=== PATIENT | male | born 1945 | race Caucasian/White ===

== ENCOUNTER 2016-04-27 18:19 | Emergency (ER) | payer MEDICARE, OTHER ==
[2016-04-27 17:14] LABS: Blood Urea Nitrogen 16 mg/dL (9-20); Non-African American GFR(MDRD) >60 (>60 ml/min/1.73 sqM)
--- NOTE | 2016-04-27 18:09 | CT ---
EXAMINATION TYPE: CT brain wo/w con DATE OF EXAM: 04/27/2016 5:58 PM COMPARISON: NONE HISTORY: PT states of mental changes and aphasia. CT DLP: 1974.6 mGycm Automated exposure control for dose reduction was used. CONTRAST: CT scan of the head is performed without and with IV Contrast, patient injected with 100 mL of Omnipa que 300. FINDINGS: There is some effacement of the left lateral ventricle. There is irregular hypodensity involving the left cerebral hemisphere in the left parietal left temporal and also some of the left occipital lobe. There is irregular pathologic enhancement in the left anterior temporal lobe with central hypodensi ty. There is effacement of the sulci involving the left temporal and parietal lobe. There is no evide nce of intracranial hemorrhage on the noncontrast images. The area of ring enhancement measures appro ximately 5.6 x 2.5 cm. There is a more densely enhancing 3 cm area in the most anterior left temporal lobe in the middle cranial fossa. IMPRESSION: There is a ring-enhancing mass involving the left temporal lobe with extensive surrounding mass effec t and edema. This is most likely related to a primary tumor. I would consider highly a high-grade gli adonis.
[2016-04-27 18:28] VITALS: BP 134/72; PULSE 77; RESP 20; TEMP 97.5
--- NOTE | 2016-04-27 19:35 | ED ---
Neuro HPI - General Chief Complaint: Neuro Symptoms/Deficit Source: patient Mode of arrival: ambulatory Limitations: no limitations - History of Present Illness Is the patient presenting with stroke symptoms?: No Initial Comments: And was making a CT suite and he was sent from the CT area to ER him a he went there for head CT and they noticed that he has a brain mass me for the last 3 months and it really got worse over the last 3-4 days and he felt that his left side is bit weak for last few days but he was able to ambulate well without obvious neuro deficit was noticed by the patient. In any headaches no blurred vision no chest pain or shortness of breath no abdominal pain no frequency urgency dysuria he does have a history of for high blood pressure he takes medications for that also has a history of for peripheral vascular disease in the leg he has been on the aspirin for that review of system otherwise was unremarkable. [facility] is [facility] he does go to [facility] and he expressed interest to go to [facility] in [place] some assistance family members when there for different reasons - Related Data Home Medications: Home Medications Medication Instructions Recorded Confirmed Lisinopril [Prinivil] 10 mg PO DAILY 05/16/15 04/27/16 Aspirin EC [Ecotrin Low Dose] 81 mg PO DAILY 04/27/16 04/27/16 Ibuprofen [Motrin] 200 - 400 mg PO Q6HR PRN 04/27/16 04/27/16 Allergies/Adverse Reactions: Allergies Allergy/AdvReac Type Severity Reaction Status Date / Time No Known Allergies Allergy Verified 04/27/16 19:05 Review of Systems ROS Statement: Those systems with pertinent positive or pertinent negative responses have been documented in the HPI. ROS Other: All systems not noted in ROS Statement are negative. General Exam - General Exam Comments Initial Comments: General: The patient is awake and alert, in no distress, and does not appear acutely ill. Skin: Skin is warm and dry and no rashes or lesions are noted. Eye: Pupils are equal, round and reactive to light, extra-ocular movements are intact; there is normal conjunctiva bilaterally. Ears, nose, mouth and throat: There are moist mucous membranes and no oral lesions. Neck: The neck is supple, there is no tenderness or JVD. Cardiovascular: There is a regular rate and rhythm. No murmur, rub or gallop is appreciated. Respiratory: To auscultation bilateral, exam is consistent with the moderate to severe COPD Gastrointestinal: Soft, non-distended, non-tender abdomen without masses or organomegaly noted. There is no rebound or guarding present. Bowel sounds are unremarkable. Back: There is no tenderness to palpation in the midline. There is no obvious deformity. Musculoskeletal: Normal ROM, no tenderness, There is no pedal edema. There is no calf tenderness or swelling. No cords were appreciated. Neurological: CN II-XII intact, Cranial nerves III through XII are intact. There are no obvious motor or sensory deficits. Coordination appears grossly intact. Speech is normal. Psychiatric: Cooperative, appropriate mood & affect, normal judgment. Limitations: no limitations Stroke MDM - Lab Data Result diagrams: 04/27/16 16:55 Lab Results 04/27/16 Range/Units 16:55 BUN 16 (9-20) mg/dL Creatinine 1.04 (0.66-1.25) mg/dL Est GFR (MDRD) Af Amer >60 (>60 ml/min/1.73 sqM) Est GFR (MDRD) Non-Af >60 (>60 ml/min/1.73 sqM) Past Medical History Past Medical History: Hypertension, Osteoarthritis (OA) Additional Past Medical History / Comment(s): collapsed lung d/t broken ribs wu a chest tube, diverticulosis, benign polys removed during colonoscopy, osteopenia, artherosclerosis peripheral vascualr disease, beginnings of cataracts History of Any Multi-Drug Resistant Organisms: None Reported Past Surgical History: Orthopedic Surgery Additional Past Surgical History / Comment(s): colonscopy with polypectomy and clipping in apr 26, vasectomy, rt ankle orif-plate and screws, chest tube d/t collapsed lung Past Anesthesia/Blood Transfusion Reactions: No Reported Reaction Past Psychological History: No Psychological Hx Reported Smoking Status: Current every day smoker Past Alcohol Use History: Occasional Additional Past Alcohol Use History / Comment(s): started smoking at age 16 smokes 1ppd, smokes marijuana frequently and on wednesday nights drinks 5-6 beers Past Drug Use History: Marijuana - Past Family History Mother Family Medical History: Dementia, Diabetes Mellitus, Osteoarthritis (OA) Father Family Medical History: Syncope Additional Family Medical History / Comment(s): etoh Course Vital Signs 04/27/16 18:25 Temperature 97.5 F L Pulse Rate 77 Respiratory 20 Rate Blood Pressure 134/72 O2 Sat by Pulse 96 Oximetry Considering the size of the tumor and possible complications in the near future and following the patient's wishes patient be transferred to [facility], transfer coordination at [facility] informed us that Dr. Barron would be the accepting doctor at [facility] Disposition Clinical Impression: Glioma, Brain mass Disposition: OTHER INSTITUTION NOT DEFINED Condition: Fair Referrals: Artis Drew DO [Primary Care Provider] - 1-2 days Decision to Admit Reason: Admit from [facility] (To [facility]) - Out of Hospital Transfer - Req. Specs Out of Hospital Transfer - Requested Specifics: Other Emergency Center ( [facility] at [facility] septated him in transfer for neurosurgical services)
== END 2016-04-27 20:37 | disposition other institution (70) ==
LOC: EC 18:19
DX: C71.2 Malignant neoplasm of temporal lobe (principal); I10 Essential (primary) hypertension; M19.90 Unspecified osteoarthritis, unspecified site; I73.9 Peripheral vascular disease, unspecified; F17.200 Nicotine dependence, unspecified, uncomplicated; Z79.899 Other long term (current) drug therapy; Z79.82 Long term (current) use of aspirin
CPT/HCPCS: 99285; 82565; 84520; 70470; 36415; Q9967

== ENCOUNTER → 2016-07-02 | Outpatient (CLI) | payer MEDICARE, OTHER ==
--- NOTE | 2016-07-02 21:33 | XR ---
EXAMINATION TYPE: XR chest 2V DATE OF EXAM: 07/02/2016 4:41 PM COMPARISON: NONE HISTORY: Shortness of breath TECHNIQUE: Frontal and lateral views of the chest are obtained. FINDINGS: Scattered senescent parenchymal changes noted. Hyperinflation compatible with COPD. There is left lower lobe infiltrate compatible with pneumonia. Follow-up until resolution is advised. Heart size is stable. Mediastinal structures are stable and grossly unremarkable. No evidence for hilar prominence. Degenerative changes dorsal spine. IMPRESSION: 1. There is left lower lobe infiltrate compatible with pneumonia. Follow-up until resolution is advis ed.
== END ==
LOC: RADXRMAIN 16:20
PROVIDERS: ATTEND Radiology Radiation Oncology
DX: R91.8 Other nonspecific abnormal finding of lung field (principal)
CPT/HCPCS: 71020

== ENCOUNTER → 2016-07-08 | Outpatient (CLI) | payer MEDICARE, OTHER ==
--- NOTE | 2016-07-08 17:22 | XR ---
EXAMINATION TYPE: XR chest 2V DATE OF EXAM: 07/08/2016 5:13 PM COMPARISON: 07/02/2016 HISTORY: Cough TECHNIQUE: Frontal and lateral views of the chest are obtained. FINDINGS: There is a large wedge-shaped area of consolidation involving the posterior and lateral ba trinh segment of the left lower lobe. There is also small fluid level. It is not clear if this is relat ed to a diaphragm hernia or O'Elvira consolidation. Heart size is normal. There is a 2 cm area of increased density over the mid thoracic spine on the lateral view that is pro bably a hypertrophic osteophyte. There are no hilar masses. There is no mediastinal adenopathy. The right lung is clear. IMPRESSION: Increased density in the posterior and lateral left lower lobe could relate to diaphragm hernia or pulmonary consolidation or pulmonary abscess. This is unchanged compared to last exam. No heart failure.
[2016-07-08 17:37] LABS: Calcium 9.1 mg/dL (8.4-10.2); Potassium 5.5 mmol/L (3.5-5.1); Total Bilirubin 0.3 mg/dL (0.2-1.3); Total Protein 6.7 g/dL (6.3-8.2)
[2016-07-08 17:39] LABS: Anisocytosis Slight; CHCM 31.7; HCT 29.6 % (39.0-53.0); HDW 2.57; HGB 9.8 gm/dL (13.0-17.5); Hypochromasia Slight; Immature Gran Flag Moderate; MCH 33.5 pg (25.0-35.0); MCV 101.6 fL (80.0-100.0); Macrocytosis Moderate; Mean Platelet Volume 8.2; RBC 2.91 m/uL (4.30-5.90); RDW 19.5 % (11.5-15.5); WBC (Perox) 26.89
[2016-07-08 17:47] LABS: WBC 25.8 k/uL (3.8-10.6)
[2016-07-08 18:02] LABS: Add Differential Manual Differential
[2016-07-08 21:29] LABS: Nucleated Red Blood Cells 0 /100 WBC (0-0); Total Cells Counted 200
[2016-07-08 21:30] LABS: Manual Review Performed
[2016-07-09 08:06] LABS: Myelocytes % 4.5 %
[2016-07-09 08:07] LABS: Spherocytes Present
== END | disposition home or self-care (01) ==
LOC: LABWHC1 16:38
PROVIDERS: ATTEND Radiology Radiation Oncology
DX: C71.2 Malignant neoplasm of temporal lobe (principal); J18.9 Pneumonia, unspecified organism
CPT/HCPCS: 36415; 71020; 80053; 85025

== ENCOUNTER 2016-07-09 16:17 | Inpatient (IN) | payer OTHER, MEDICARE ==
[2016-07-09] MEDS ORDERED: PIPERACILLIN-TAZOBACTAM 3.375 GM in DEXTROSE/WATER 1 50ML.BAG IVPB STA (17:22)
[2016-07-09] MEDS ORDERED: ACETAMINOPHEN TAB 325 MG TAB PO STA (17:22)
[2016-07-09] MEDS ORDERED: RX INFO: IV CONTRAST WAS GIVEN 1 EACH MISC MISCELLANE PRN (17:23)
--- NOTE | 2016-07-09 17:29 | ED ---
SOB HPI - General Chief Complaint: Shortness of Breath Stated Complaint: Pneumonia Time Seen by Provider: 07/09/16 17:19 Source: patient, family, RN notes reviewed Mode of arrival: wheelchair Limitations: no limitations - History of Present Illness Initial Comments: 70-year-old male presents to the emergency department with a chief complaint of shortness of breath. Week ago patient developed shortness of breath and cough. Patient was placed on azithromycin they diagnosed him with pneumonia. Patient then went to the doctor yesterday and he continued to have pneumonia so they changed his antibiotic. Today he just continues to have the cough. Patient does have a history of brain cancer. Patient is currently on chemo and radiation. Patient continues to have this cough and shortness of breath. Patient is a smoker. Patient states that he is having some left-sided lateral chest discomfort. Patient states that he is concerned due to this pain and shortness of breath that seems to be worsening. They deny any fevers at home. They were concerned due to the continued symptoms so they thought that they should be evaluated. Patient denies any recent fever, chills, back pain, abdominal pain, nausea vomiting, numbness or tingling, dysuria or hematuria, constipation or diarrhea, headaches or visual changes, or any other current symptoms. - Related Data Home Medications Medication Instructions Recorded Confirmed Lisinopril [Prinivil] 10 mg PO DAILY 05/16/15 07/09/16 Cephalexin [Keflex] 500 mg PO TID 07/09/16 07/09/16 Famotidine [Pepcid] 20 mg PO DAILY 07/09/16 07/09/16 HYDROcodone/APAP 5-325MG [[place] 1 tab PO Q3H PRN 07/09/16 07/09/16 5-325] Mucinex Fast Max Day Time 5 ml PO DAILY PRN 07/09/16 07/09/16 Mucinex Fast Max Night Time 5 ml PO HS PRN 07/09/16 07/09/16 Nicotine 21Mg/24Hr Patch [Habitrol 1 patch TRANSDERM DAILY 07/09/16 07/09/16 21Mg/24Hr Patch] Sulfamethox-Tmp 800-160Mg [Bactrim 1 tab PO Q12HR 07/09/16 07/09/16 DS 800-160 mg] Temozolomide 5 mg PO MOTUWETHFR 07/09/16 07/09/16 Temozolomide [Temodar] 20 mg PO MOTUWETHFR 07/09/16 07/09/16 Temozolomide [Temodar] 100 mg PO MOTUWETHFR 07/09/16 07/09/16 levETIRAcetam [Keppra] 500 mg PO Q12HR 07/09/16 07/09/16 Allergies Allergy/AdvReac Type Severity Reaction Status Date / Time No Known Allergies Allergy Verified 07/09/16 17:49 Review of Systems ROS Statement: Those systems with pertinent positive or pertinent negative responses have been documented in the HPI. ROS Other: All systems not noted in ROS Statement are negative. Past Medical History Past Medical History: Hypertension, Osteoarthritis (OA) Additional Past Medical History / Comment(s): collapsed lung d/t broken ribs wu a chest tube, diverticulosis, benign polys removed during colonoscopy, osteopenia, artherosclerosis peripheral vascualr disease, beginnings of cataracts, malignant brain tumor History of Any Multi-Drug Resistant Organisms: None Reported Past Surgical History: Orthopedic Surgery Additional Past Surgical History / Comment(s): colonscopy with polypectomy and clipping in apr 26, vasectomy, rt ankle orif-plate and screws, chest tube d/t collapsed lung, brain surgery Past Anesthesia/Blood Transfusion Reactions: No Reported Reaction Past Psychological History: No Psychological Hx Reported Smoking Status: Current every day smoker Past Alcohol Use History: Occasional Additional Past Alcohol Use History / Comment(s): started smoking at age 16 smokes 1ppd, smokes marijuana frequently and on wednesday nights drinks 5-6 beers Past Drug Use History: Marijuana - Past Family History Mother Family Medical History: Dementia, Diabetes Mellitus, Osteoarthritis (OA) Father Family Medical History: Syncope Additional Family Medical History / Comment(s): etoh General Exam Limitations: no limitations General appearance: alert, in no apparent distress Head exam: Present: atraumatic, normocephalic, normal inspection Eye exam: Present: normal appearance, PERRL, EOMI. Absent: scleral icterus, conjunctival injection, periorbital swelling ENT exam: Present: normal exam, mucous membranes moist Neck exam: Present: normal inspection. Absent: tenderness, meningismus, lymphadenopathy Respiratory exam: Present: decreased breath sounds. Absent: respiratory distress, wheezes, rales, rhonchi, stridor, chest wall tenderness Cardiovascular Exam: Present: regular rate, normal rhythm, normal heart sounds. Absent: systolic murmur, diastolic murmur, rubs, gallop, clicks GI/Abdominal exam: Present: soft, normal bowel sounds. Absent: distended, tenderness, guarding, rebound, rigid Neurological exam: Present: alert, oriented X3 Psychiatric exam: Present: normal affect, normal mood Skin exam: Present: warm, dry, intact, normal color. Absent: rash Course Vital Signs 07/09/16 07/09/16 16:25 17:38 Temperature 97.7 F Pulse Rate 94 Respiratory 20 18 Rate Blood Pressure 112/59 O2 Sat by Pulse 95 Oximetry Medical Decision Making - Medical Decision Making 70-year-old male presents for shortness of breath. Patient's chest x-ray reviewed outpatient we does show a consolidation in the left lower lung that did not pipe changer a week of antibiotics. There is concern for possible abscess versus consolidation to this area. At this time we will get a CT of the patient's chest. Patient does have a history of cancer. Patient's blood was reviewed that does show a low hemoglobin with an elevated white blood cell count as well. Patient's kidney function does appear to be changed from previous blood work in April as well. At this time CT is reviewed additional lung abscess versus necrotic tumor. We will start the patient on IV antibiotics. We will admit the patient. Patient family agree with the plan. - Lab Data Result diagrams: 07/09/16 17:36 07/09/16 17:36 Lab Results 07/09/16 07/09/16 07/09/16 Range/Units 17:36 17:36 17:36 WBC 23.2 H (3.8-10.6) k/uL RBC 2.67 L (4.30-5.90) m/uL Hgb 8.6 L (13.0-17.5) gm/dL Hct 26.5 L (39.0-53.0) % MCV 99.1 (80.0-100.0) fL MCH 32.2 (25.0-35.0) pg MCHC 32.5 (31.0-37.0) g/dL RDW 19.5 H (11.5-15.5) % Plt Count 210 (150-450) k/uL Neutrophils % (Manual) 71.5 % Band Neutrophils % 7.0 % Lymphocytes % (Manual) 3.0 % Monocytes % (Manual) 11.5 % Metamyelocytes % 3.0 % Myelocytes % 4.0 % Neutrophils # (Manual) 18.2 H (1.3-7.7) k/uL Lymphocytes # (Manual) 0.7 L (1.0-4.8) k/uL Monocytes # (Manual) 2.7 H (0-1.0) k/uL Nucleated RBCs 0 (0-0) /100 WBC Manual Slide Review Performed Polychromasia Present Anisocytosis Slight Anisocytosis (manual) Present Macrocytosis Moderate PT (9.0-12.0) sec INR (<1.1) APTT (22.0-30.0) sec Sodium 137 (137-145) mmol/L Potassium 5.3 H (3.5-5.1) mmol/L Chloride 106 (98-107) mmol/L Carbon Dioxide 20 L (22-30) mmol/L Anion Gap 11 mmol/L BUN 56 H (9-20) mg/dL Creatinine 1.71 H (0.66-1.25) mg/dL Est GFR (MDRD) Af Amer 48 (>60 ml/min/1.73 sqM) Est GFR (MDRD) Non-Af 40 (>60 ml/min/1.73 sqM) Glucose 99 (74-99) mg/dL Plasma Lactic Acid Darrell (0.7-2.0) mmol/L Calcium 8.7 (8.4-10.2) mg/dL Total Bilirubin 0.4 (0.2-1.3) mg/dL AST 22 (17-59) U/L ALT 60 (21-72) U/L Alkaline Phosphatase 46 (38-126) U/L Total Creatine Kinase 21 L (55-170) U/L CK-MB (CK-2) 0.9 (0.0-2.4) ng/mL CK-MB (CK-2) Rel Index 4.3 Troponin I 0.015 (0.000-0.034) ng/mL Total Protein 6.5 (6.3-8.2) g/dL Albumin 3.2 L (3.5-5.0) g/dL Urine Color Urine Appearance (Clear) Urine pH (5.0-8.0) Ur Specific [place] (1.001-1.035) Urine Protein (Negative) Urine Glucose (UA) (Negative) Urine Ketones (Negative) Urine Blood (Negative) Urine Nitrite (Negative) Urine Bilirubin (Negative) Urine Urobilinogen (<2.0) mg/dL Ur Leukocyte Esterase (Negative) 07/09/16 07/09/16 07/09/16 Range/Units 17:36 17:36 18:25 WBC (3.8-10.6) k/uL RBC (4.30-5.90) m/uL Hgb (13.0-17.5) gm/dL Hct (39.0-53.0) % MCV (80.0-100.0) fL MCH (25.0-35.0) pg MCHC (31.0-37.0) g/dL RDW (11.5-15.5) % Plt Count (150-450) k/uL Neutrophils % (Manual) % Band Neutrophils % % Lymphocytes % (Manual) % Monocytes % (Manual) % Metamyelocytes % % Myelocytes % % Neutrophils # (Manual) (1.3-7.7) k/uL Lymphocytes # (Manual) (1.0-4.8) k/uL Monocytes # (Manual) (0-1.0) k/uL Nucleated RBCs (0-0) /100 WBC Manual Slide Review Polychromasia Anisocytosis Anisocytosis (manual) Macrocytosis PT 9.9 (9.0-12.0) sec INR 1.0 (<1.1) APTT 24.9 (22.0-30.0) sec Sodium (137-145) mmol/L Potassium (3.5-5.1) mmol/L Chloride (98-107) mmol/L Carbon Dioxide (22-30) mmol/L Anion Gap mmol/L BUN (9-20) mg/dL Creatinine (0.66-1.25) mg/dL Est GFR (MDRD) Af Amer (>60 ml/min/1.73 sqM) Est GFR (MDRD) Non-Af (>60 ml/min/1.73 sqM) Glucose (74-99) mg/dL Plasma Lactic Acid Darrell 2.0 (0.7-2.0) mmol/L Calcium (8.4-10.2) mg/dL Total Bilirubin (0.2-1.3) mg/dL AST (17-59) U/L ALT (21-72) U/L Alkaline Phosphatase (38-126) U/L Total Creatine Kinase (55-170) U/L CK-MB (CK-2) (0.0-2.4) ng/mL CK-MB (CK-2) Rel Index Troponin I (0.000-0.034) ng/mL Total Protein (6.3-8.2) g/dL Albumin (3.5-5.0) g/dL Urine Color Yellow Urine Appearance Clear (Clear) Urine pH 5.5 (5.0-8.0) Ur Specific [place] 1.014 (1.001-1.035) Urine Protein Trace H (Negative) Urine Glucose (UA) Negative (Negative) Urine Ketones Negative (Negative) Urine Blood Negative (Negative) Urine Nitrite Negative (Negative) Urine Bilirubin Negative (Negative) Urine Urobilinogen <2.0 (<2.0) mg/dL Ur Leukocyte Esterase Negative (Negative) - Radiology Data Radiology results: report reviewed, image reviewed Disposition Clinical Impression: Anemia, Leukocytosis, Bilateral pneumonia, Lung mass, Sepsis Disposition: ADMITTED IP TO THIS [facility] Condition: Stable Time of Disposition: 18:59 Decision Date: 07/09/16 Decision Time: 18:59
[2016-07-09 17:48] LABS: Anisocytosis Slight; Aty Lym Flag Slight; CH 32.3; CHCM 32.8; HCT 26.5 % (39.0-53.0); HDW 2.65; HGB 8.6 gm/dL (13.0-17.5); Immature Gran Flag Moderate; MCH 32.2 pg (25.0-35.0); MCHC 32.5 g/dL (31.0-37.0); MCV 99.1 fL (80.0-100.0); Macrocytosis Moderate; Mean Platelet Volume 8.2; RBC 2.67 m/uL (4.30-5.90); RDW 19.5 % (11.5-15.5); WBC 23.2 k/uL (3.8-10.6); WBC (Perox) 24.33
[2016-07-09] MEDS: SODIUM CHLORIDE 0.9% 500 ML IV SCH ×2 (17:49→23:33)
[2016-07-09 17:57] LABS: Calcium 8.7 mg/dL (8.4-10.2); Potassium 5.3 mmol/L (3.5-5.1); Total Bilirubin 0.4 mg/dL (0.2-1.3); Total Protein 6.5 g/dL (6.3-8.2)
[2016-07-09 18:00] LABS: Partial Thromboplastin Time 24.9 sec (22.0-30.0); Prothrombin Time 9.9 sec (9.0-12.0)
[2016-07-09 18:21] LABS: Creatine Kinase MB 0.9 ng/mL (0.0-2.4); Troponin I 0.015 ng/mL (0.000-0.034)
[2016-07-09 18:26] LABS: Add Differential Manual Differential
[2016-07-09 18:32] LABS: Nucleated Red Blood Cells 0 /100 WBC (0-0); Total Cells Counted 200
[2016-07-09 18:33] LABS: Manual Review Performed; Polychromasia Present
[2016-07-09 18:42] LABS: Appearance,Urine Clear (Clear); Bilirubin,Urine Negative (Negative); Glucose,Urine (UA) Negative (Negative); Ketones,Urine Negative (Negative); Leukocyte Esterase,Urine Negative (Negative); Nitrite,Urine Negative (Negative); PH, Urine 5.5 (5.0-8.0); Protein,Urine Trace (Negative); Specific Gravity,Urine 1.014 (1.001-1.035); UA Billing (MACRO vs. MICRO) CHEM; Urobilinogen,Urine <2.0 mg/dL (<2.0)
--- NOTE | 2016-07-09 18:44 | CT ---
EXAMINATION TYPE: CT chest wo con DATE OF EXAM: 07/09/2016 6:33 PM COMPARISON: NONE HISTORY: Difficulty breathing. CT DLP: 233.90 mGycm Automated exposure control for dose reduction was used. FINDINGS: There is mild pulmonary emphysema. There is a 2 cm masslike infiltrate in the superior segment right lower lobe. There is a 3.5 cm masslike infiltrate with possible cavitation in the superior segment le ft lower lobe. There is extensive consolidation in the lateral and posterior left lower lobe with the apparent irregular cavity on the anterior aspect. Consolidation measures 9 x 7 cm. There is left ple ural effusion. There is atherosclerotic vascular calcification. Heart size is normal. I see no medias tinal adenopathy. The bony thorax is intact. There is some retained fluid in the thoracic esophagus. IMPRESSION: BILATERAL PULMONARY MASSES WITH SOME CAVITATION ON THE LEFT SIDE. I WOULD CONSIDER POSSIBILITIES OF L DANA ABSCESS WELL NECROTIC TUMOR. FOLLOW-UP IS RECOMMENDED. SMALL LEFT PLEURAL EFFUSION. ISABEL STEELE.
[2016-07-09] MEDS ORDERED: NALOXONE 0.4 MG/ML 1 ML VIAL IV PRN (19:00)
[2016-07-09] MEDS ORDERED: ONDANSETRON 4 MG/2 ML VIAL IVP PRN (19:00)
[2016-07-09] MEDS ORDERED: IPRATROPIUM-ALBUTEROL 3 ML NEB INHALATION PRN (19:01)
[2016-07-09] MEDS: IPRATROPIUM-ALBUTEROL 3 ML NEB INHALATION SCH (20:56)
[2016-07-09] MEDS: SODIUM CHLORIDE 0.9% 1,000 ML IV SCH (23:34)
[2016-07-10] MEDS: PIPERACILLIN-TAZOBACTAM 3.375 GM in DEXTROSE/WATER 1 50ML.BAG IVPB SCH ×3 (01:47→18:25)
[2016-07-10 07:24] LABS: Anisocytosis Slight; Aty Lym Flag Slight; CH 31.8; CHCM 32.2; HCT 24.5 % (39.0-53.0); HDW 2.61; Immature Gran Flag Slight; MCH 32.4 pg (25.0-35.0); MCHC 32.7 g/dL (31.0-37.0); MCV 99.3 fL (80.0-100.0); Macrocytosis Moderate; Mean Platelet Volume 7.9; RBC 2.46 m/uL (4.30-5.90); RDW 19.3 % (11.5-15.5); WBC 17.7 k/uL (3.8-10.6); WBC (Perox) 18.75
[2016-07-10 07:47] LABS: Add Differential Manual Differential
[2016-07-10 07:48] LABS: ALT 52 U/L (21-72); AST 20 U/L (17-59); Alkaline Phosphatase 41 U/L (38-126); Anion Gap 10 mmol/L; Blood Urea Nitrogen 42 mg/dL (9-20); Calcium 8.2 mg/dL (8.4-10.2); Carbon Dioxide 19 mmol/L (22-30); Chloride 111 mmol/L (98-107); Glucose 105 mg/dL (74-99); Non-African American GFR(MDRD) 52 (>60 ml/min/1.73 sqM); Potassium 4.7 mmol/L (3.5-5.1); Sodium 140 mmol/L (137-145); Total Bilirubin 0.4 mg/dL (0.2-1.3)
[2016-07-10 07:50] LABS: Nucleated Red Blood Cells 0 /100 WBC (0-0); Total Cells Counted 200
[2016-07-10 07:51] LABS: Manual Review Performed
[2016-07-10] MEDS: SODIUM CHLORIDE 0.9% 1,000 ML IV SCH ×3 (09:04→21:51)
[2016-07-10] MEDS: IPRATROPIUM-ALBUTEROL 3 ML NEB INHALATION SCH ×5 (09:43→20:40)
--- NOTE | 2016-07-10 12:06 | P.CNPUL ---
History of Present Illness Consult date: 07/10/16 Requesting physician: Abel Main Reason for consult: other (Bilateral pulmonary masses) Chief complaint: Shortness of breath History of present illness: This is a 70-year-old male patient being evaluated and examined today on selective care unit. This patient came into the emergency room with a chief complaint of shortness of breath with a productive cough that had been worsening over the last week. In the outpatient setting the patient was placed on erythromycin and diagnosed with pneumonia the patient then went back to the doctors yesterday stating he had become worse and they changed his antibiotic. Per family at bedside the patient's physician told them they he likely would and up in the emergency room if he didn't respond well to this antibiotic. Patient does have a significant history for brain cancer and is currently undergoing chemo and radiation he had surgery on the brain tumor May 01, per the family. Family also stated that the patient had a CT done at [facility] in April to check for any metastasis he had a small spot on his liver and a small spot on his kidney that were non-concerning at that time, and his lungs had no nodules at that time that they were aware of. We will try to obtain his previous records from [facility] and get his CT results. Patient is nicotine dependence and smokes 1 pack per day. His chest CT results were reviewed, showed bilateral pulmonary masses with cavitation on the left side, lung abscess versus necrotic tumor. Patient was also noted to have a low hemoglobin of 8.6 on admission today he is 8.0. Upon examination the patient is resting up in bed on 4 L of oxygen, the patient does not use home oxygen. He does complain of a frequent productive cough with rust-colored sputum. Review of Systems 14 point review of systems was completed and is negative other than what is noted in the HPI. Past Medical History Past Medical History: Cancer (brain), GI Bleed, Hypertension, Osteoarthritis (OA ), Vascular Disorder Additional Past Medical History / Comment(s): Being tx for pneumonia, past collapsed lung d/t broken ribs had a chest tube, diverticulosis, benign polys removed during colonoscopy, artherosclerosis peripheral vascualr disease, beginnings of cataracts, lower GI bleed with acute blood loss anemia r/t polypectomy, DJD, malignant brain tumor removed 05/01/16 with current radiation tx /chemo by pill. History of Any Multi-Drug Resistant Organisms: None Reported Past Surgical History: Orthopedic Surgery Additional Past Surgical History / Comment(s): 05/01/16 brain tumor excised, colonscopy with polypectomy and clipping, vasectomy, rt ankle orif-plate and screws, chest tube d/t collapsed lung, brain surgery Past Anesthesia/Blood Transfusion Reactions: No Reported Reaction Past Psychological History: No Psychological Hx Reported Additional Psychological History / Comment(s): Pt resides with significant other. He uses no assistive device. He is no longer driving, significant other drives. He has no home care. He has 5-6 steps to get up into kitchen. He is a [employer] and served over in [employer]. Significant other manages his meds and does the cooking. Smoking Status: Current every day smoker Past Alcohol Use History: Occasional Additional Past Alcohol Use History / Comment(s): Pt started smoking at age 16 smoked 1ppd-he is now in the process of quitting and has not smoked x 2 days. Pt drinks a couple beers on Wednesday nights with his friends. Past Drug Use History: Marijuana Additional Drug Use History / Comment(s): Occasional marijuana use. - Past Family History Mother Family Medical History: Dementia, Diabetes Mellitus, Osteoarthritis (OA) Additional Family Medical History / Comment(s): Mother at the age of 88yrs. Father Family Medical History: Syncope Additional Family Medical History / Comment(s): etoh. Father in his early 60's. Medications and Allergies Home Medications Medication Instructions Recorded Confirmed Type Lisinopril [Prinivil] 10 mg PO DAILY 05/16/15 07/09/16 History Cephalexin [Keflex] 500 mg PO TID 07/09/16 07/09/16 History Famotidine [Pepcid] 20 mg PO DAILY 07/09/16 07/09/16 History HYDROcodone/APAP 5-325MG [[place] 1 tab PO Q3H PRN 07/09/16 07/09/16 History 5-325] Mucinex Fast Max Day Time 5 ml PO DAILY PRN 07/09/16 07/09/16 History Mucinex Fast Max Night Time 5 ml PO HS PRN 07/09/16 07/09/16 History Nicotine 21Mg/24Hr Patch [Habitrol 1 patch TRANSDERM DAILY 07/09/16 07/09/16 History 21Mg/24Hr Patch] Sulfamethox-Tmp 800-160Mg [Bactrim 1 tab PO Q12HR 07/09/16 07/09/16 History DS 800-160 mg] Temozolomide 5 mg PO MOTUWETHFR 07/09/16 07/09/16 History Temozolomide [Temodar] 20 mg PO MOTUWETHFR 07/09/16 07/09/16 History Temozolomide [Temodar] 100 mg PO MOTUWETHFR 07/09/16 07/09/16 History levETIRAcetam [Keppra] 500 mg PO Q12HR 07/09/16 07/09/16 History Allergies Allergy/AdvReac Type Severity Reaction Status Date / Time No Known Allergies Allergy Verified 07/09/16 17:49 Physical Exam Vitals: Vital Signs Temp Pulse Pulse Resp BP BP Pulse Ox 07/10/16 11:33 97 18 117/56 97 07/10/16 09:53 106 H 07/10/16 09:43 105 H 07/10/16 08:55 97.7 F 94 17 125/66 96 07/10/16 06:14 90 18 139/65 96 07/10/16 05:06 100.6 F H 97 18 134/72 97 07/10/16 03:10 106 H 20 125/62 98 07/10/16 01:48 98.0 F 105 H 18 145/64 97 07/10/16 00:59 97.9 F 104 H 18 106/54 95 07/09/16 23:37 106/54 07/09/16 23:34 98.5 F 96 18 96 07/09/16 21:06 91 07/09/16 21:01 85 16 121/70 99 07/09/16 20:56 87 07/09/16 19:07 97.1 F L 84 16 121/70 95 Intake and Output 07/09/16 07/10/16 07/10/16 22:59 06:59 14:59 Intake Total 180 Output Total 450 Balance -270 Intake: Oral 180 Output: Urine 450 GENERAL EXAM: Alert, tired, comfortable in no apparent distress. HEAD: Normocephalic. Healing scars noted to the left side due to recent brain CA surgery. EYES: Normal reaction of pupils, equal size. NOSE: Clear with pink turbinates. THROAT: No erythema or exudates. NECK: No masses, no JVD. CHEST: No chest wall deformity. LUNGS: Bilaterally decreased breath sounds, some scattered rhonchi and wheezes CVS: S1 and S2 normal with no audible mumurs, regular rhythm. ABDOMEN: No hepatosplenomegaly, normal bowel sounds, no guarding or rigidity. EXTREMITIES: No edema noted, pedal pulses palpable. SKIN: No rashes CENTRAL NERVOUS SYSTEM: No focal deficits, tone is normal in all 4 extremities. Results - Laboratory Findings CBC and BMP: 07/10/16 06:48 07/10/16 06:48 PT/INR, D-dimer PT 9.9 sec (9.0-12.0) 07/09/16 17:36 INR 1.0 (<1.1) 07/09/16 17:36 Abnormal lab findings: Abnormal Labs 07/10/16 07/10/16 06:48 06:48 WBC 17.7 H RBC 2.46 L Hgb 8.0 L Hct 24.5 L RDW 19.3 H Neutrophils # (Manual) 13.6 H Monocytes # (Manual) 2.4 H Chloride 111 H Carbon Dioxide 19 L BUN 42 H Creatinine 1.36 H Glucose 105 H Calcium 8.2 L Total Protein 6.0 L Albumin 2.8 L - Diagnostic Findings Chest x-ray: report reviewed, image reviewed CT scan - chest: report reviewed, image reviewed Assessment and Plan Plan: Assessment Acute hypoxic respiratory failure Bilateral pneumonia Left lobe lung abscess versus necrotic tumor Small left pleural effusion Leukocytosis Sepsis Anemia History of brain cancer Plan Medications have been reviewed and will be continued. We will continue with the IV antibiotics. We will add on budesonide to his nebulizer treatments. We will try to obtain records from [facility] in [place]. Smoking sensation discussed at length. Plan is to continue with antibiotics through the weekend and patient will possibly need a bronchoscopy with biopsies, possibly Wednesday or Wednesday after getting antibiotics over the weekend, to help lessen the pneumonia. Continue on supplemental oxygen to keep oxygen saturations above 92% . Continue with pulmonary hygiene, incentive spirometer, supplemental oxygen and supportive care. We will continue to monitor labs/results and adjust treatment as necessary. I performed an examination of the patient and discussed their management with the nurse practitioner. I have reviewed the nurse practitioner's note and agree with the documented findings and plan of care.
[2016-07-10] MEDS: HYDROcodone/APAP 5-325MG 1 EACH TAB PO PRN ×2 (12:39→18:29)
[2016-07-10] MEDS: levETIRAcetam 500 MG TAB PO SCH ×2 (12:39→21:51)
[2016-07-10] MEDS: NICOTINE 21MG/24HR PATCH TRANSDERM SCH (12:40)
[2016-07-10] MEDS ORDERED: VANCOMYCIN 1,250 MG in SODIUM CHLORIDE 0.9% 250 ML IVPB SCH (14:30)
[2016-07-10] MEDS ORDERED: IV VANCOMYCIN PER PHARMACY 1 EACH MISC MISCELLANE ONE (14:45)
--- NOTE | 2016-07-10 17:30 | P.CONS ---
History of Present Illness - Reason for Consult Consult date: 07/10/16 glioblastoma, on treatment Requesting physician: Alicia Garcia - Chief Complaint progressive SOB - History of Present Illness Mr. Kimbrough is a very pleasant 70-year-old male patient of Dr. Delatorre'wes who presented to [facility] April 27 with slurred speech, weakness and confusion. Patient had a computed tomography scan of the brain which revealed an area of ring enhancement in the left parietal region measuring 5.6 x 2.5 cm. Patient was transferred to [facility] in [place]. Computed tomography scan of the abdomen and pelvis revealed a 2.6 cm lesion in the liver and a 1.7 cm lesion in the upper pole of the left kidney. Biopsy of the liver was attempted but could not be performed due to proximity to vascular structures. Patient had an MRI of the brain that revealed 7.7 cm lesion. Patient was taken to OR by Dr. James on 05/01/2016. Patient had gross resection of the tumor revealing glioblastoma WHO grade 4. Patient recovered well post operatively. Patient was started on radiation therapy and 2 week into radiation he was initiated on Temodar, which was about 3-4 weeks ago. Treatment consists of 42 days of Temodar then, Temodar monthly 5 days for one year, pt should be following up soon in our office. Patient's significant other is the one who helps him with his activities as well as management of his medications. Patient came to the emergency department with complaints of significant shortness of breath. He had a CT of the chest showing emphysema, a 2 cm masslike infiltrate in the right lower lobe, 3.5 cm masslike infiltrate in the left lower lobe, left pleural effusion and consolidation measuring 9 x 7 cm, there was no discussion of adenopathy. When seen patient is sitting up in bed, he denies any pain or difficulty breathing while sitting still, patient does have difficulty expressing himself, he is anxious. When I mentioned his girlfriend he calmed down, he said to talk to her about treatment. Patient was aware of plans for bronchoscopy. Review of Systems ROS unobtainable: due to mental status Constitutional: Reports as per HPI Past Medical History Past Medical History: Cancer (brain), GI Bleed, Hypertension, Osteoarthritis (OA ), Vascular Disorder Additional Past Medical History / Comment(s): Being tx for pneumonia, past collapsed lung d/t broken ribs had a chest tube, diverticulosis, benign polys removed during colonoscopy, artherosclerosis peripheral vascualr disease, beginnings of cataracts, lower GI bleed with acute blood loss anemia r/t polypectomy, DJD, malignant brain tumor removed 05/01/16 with current radiation tx /chemo by pill. History of Any Multi-Drug Resistant Organisms: None Reported Past Surgical History: Orthopedic Surgery Additional Past Surgical History / Comment(s): 05/01/16 brain tumor excised, colonscopy with polypectomy and clipping, vasectomy, rt ankle orif-plate and screws, chest tube d/t collapsed lung, brain surgery Past Anesthesia/Blood Transfusion Reactions: No Reported Reaction Past Psychological History: Anxiety, Depression Additional Psychological History / Comment(s): Pt resides with significant other. He uses no assistive device. He is no longer driving, significant other drives. He has no home care. He has 5-6 steps to get up into kitchen. He is a [employer] and served over in [employer]. Significant other manages his meds and does the cooking. Smoking Status: Current every day smoker Past Alcohol Use History: Occasional Additional Past Alcohol Use History / Comment(s): Pt started smoking at age 16 smoked 1ppd-he is now in the process of quitting and has not smoked x 2 days. Pt drinks a couple beers on Wednesday nights with his friends. Past Drug Use History: Marijuana Additional Drug Use History / Comment(s): Occasional marijuana use. - Past Family History Mother Family Medical History: Dementia, Diabetes Mellitus, Osteoarthritis (OA) Additional Family Medical History / Comment(s): Mother at the age of 88yrs. Father Family Medical History: Syncope Additional Family Medical History / Comment(s): etoh. Father in his early 60's. Medications and Allergies Home Medications Medication Instructions Recorded Confirmed Type Lisinopril [Prinivil] 10 mg PO DAILY 05/16/15 07/09/16 History Cephalexin [Keflex] 500 mg PO TID 07/09/16 07/09/16 History Famotidine [Pepcid] 20 mg PO DAILY 07/09/16 07/09/16 History HYDROcodone/APAP 5-325MG [[place] 1 tab PO Q3H PRN 07/09/16 07/09/16 History 5-325] Mucinex Fast Max Day Time 5 ml PO DAILY PRN 07/09/16 07/09/16 History Mucinex Fast Max Night Time 5 ml PO HS PRN 07/09/16 07/09/16 History Nicotine 21Mg/24Hr Patch [Habitrol 1 patch TRANSDERM DAILY 07/09/16 07/09/16 History 21Mg/24Hr Patch] Sulfamethox-Tmp 800-160Mg [Bactrim 1 tab PO Q12HR 07/09/16 07/09/16 History DS 800-160 mg] Temozolomide 5 mg PO MOTUWETHFR 07/09/16 07/09/16 History Temozolomide [Temodar] 20 mg PO MOTUWETHFR 07/09/16 07/09/16 History Temozolomide [Temodar] 100 mg PO MOTUWETHFR 07/09/16 07/09/16 History levETIRAcetam [Keppra] 500 mg PO Q12HR 07/09/16 07/09/16 History Allergies Allergy/AdvReac Type Severity Reaction Status Date / Time No Known Allergies Allergy Verified 07/09/16 17:49 Physical Exam Vitals: Vital Signs Temp Pulse Pulse Resp BP BP Pulse Ox 07/10/16 15:16 100 07/10/16 15:04 98 07/10/16 13:19 104 H 07/10/16 13:11 102 H 07/10/16 11:33 97 18 117/56 97 07/10/16 09:53 106 H 07/10/16 09:43 105 H 07/10/16 08:55 97.7 F 94 17 125/66 96 07/10/16 06:14 90 18 139/65 96 07/10/16 05:06 100.6 F H 97 18 134/72 97 07/10/16 03:10 106 H 20 125/62 98 07/10/16 01:48 98.0 F 105 H 18 145/64 97 07/10/16 00:59 97.9 F 104 H 18 106/54 95 07/09/16 23:37 106/54 07/09/16 23:34 98.5 F 96 18 96 07/09/16 21:06 91 07/09/16 21:01 85 16 121/70 99 07/09/16 20:56 87 07/09/16 19:07 97.1 F L 84 16 121/70 95 Intake and Output 07/10/16 07/10/16 07/10/16 06:59 14:59 22:59 Intake Total 180 Output Total 850 Balance -670 Intake: Oral 180 Output: Urine 850 - Constitutional General appearance: cooperative, mild distress, thin - EENT Eyes: anicteric sclerae, normal appearance ENT: hard of hearing, normal oropharynx - Neck Neck: no lymphadenopathy - Respiratory Respiratory: bilateral: diminished - Cardiovascular Heart sounds: normal: S1, S2 Abnormal Heart Sounds: no systolic murmur, no diastolic murmur, no rub, no S3 Gallop, no S4 Gallop, no click, no other leg Peripheral Edema: bilateral: None - Gastrointestinal General gastrointestinal: no absent bowel sounds, no decreased bowel sounds, no distended, no hepatomegaly, no hyperactive bowel sounds, normal bowel sounds, no organomegaly, no rigid, no scaphoid, soft, no splenomegaly, no tenderness, no umbilical hernia, no ventral hernia - Integumentary Integumentary: pale - Neurologic Patient has some degree of receptive as well as expressive aphasia. He has some difficulty understanding a questions asked him, he has difficulty communicating his responses in the way he wants to. Essential tremor noted at rest - Musculoskeletal Musculoskeletal: generalized weakness - Psychiatric Patient is slightly anxious but remains calm during our discussion. He does seem to understand that he is in the hospital and that the doctors are going to be doing a bronchoscopy because he has suspicious areas in his lungs. Results CBC & Chem 7: 07/10/16 06:48 07/10/16 06:48 Labs: Abnormal Lab Results - Last 24 Hours (Table) 07/10/16 07/10/16 Range/Units 06:48 06:48 WBC 17.7 H (3.8-10.6) k/uL RBC 2.46 L (4.30-5.90) m/uL Hgb 8.0 L (13.0-17.5) gm/dL Hct 24.5 L (39.0-53.0) % RDW 19.3 H (11.5-15.5) % Neutrophils # (Manual) 13.6 H (1.3-7.7) k/uL Monocytes # (Manual) 2.4 H (0-1.0) k/uL Chloride 111 H (98-107) mmol/L Carbon Dioxide 19 L (22-30) mmol/L BUN 42 H (9-20) mg/dL Creatinine 1.36 H (0.66-1.25) mg/dL Glucose 105 H (74-99) mg/dL Calcium 8.2 L (8.4-10.2) mg/dL Total Protein 6.0 L (6.3-8.2) g/dL Albumin 2.8 L (3.5-5.0) g/dL CT scan - chest: report reviewed Assessment and Plan (1) Glioblastoma Narrative/Plan: Patient is currently receiving treatment for his glioblastoma. Patient is on oral Temodar and has been receiving radiation. Pt should be completing his treatment in the next 1-2 weeks. Patient's Temodar will be on hold until patient has had bronchoscopy and biopsy. Status: Chronic (2) Anemia Narrative/Plan: Patient has been anemic for quite some time, do not believe iron studies have been checked in a while so we'll recheck those. No current need for blood transfusion, continue to monitor CBC. Status: Chronic (3) Lung mass Narrative/Plan: Patient has been evaluated by pulmonary. Patient does have a CT report from with no findings in the chest-no nodules, areas of airspace disease, pleural effusions or enlarged lymph nodes in the thorax were identified. Did review pulmonary notes. Agree with bronchoscopy and biopsy for tissue diagnosis. Status: Acute
[2016-07-10] MEDS: BUDESONIDE 1 MG/2 ML NEBU INHALATION SCH (19:07)
[2016-07-11] MEDS: PIPERACILLIN-TAZOBACTAM 3.375 GM in DEXTROSE/WATER 1 50ML.BAG IVPB SCH ×3 (02:08→18:15)
[2016-07-11] MEDS: HYDROcodone/APAP 5-325MG 1 EACH TAB PO PRN (03:13)
[2016-07-11 07:29] LABS: Anisocytosis Slight; Aty Lym Flag Slight; CH 32.4; CHCM 32.9; HCT 22.6 % (39.0-53.0); HDW 2.76; HGB 7.2 gm/dL (13.0-17.5); Immature Gran Flag Moderate; MCH 31.5 pg (25.0-35.0); MCHC 31.8 g/dL (31.0-37.0); Macrocytosis Moderate; Mean Platelet Volume 8.2; RBC 2.29 m/uL (4.30-5.90); RDW 19.3 % (11.5-15.5); Reticulocyte % 1.8 % (0.5-2.0); WBC 16.2 k/uL (3.8-10.6); WBC (Perox) 16.16
[2016-07-11 07:37] LABS: Anion Gap 9 mmol/L; Blood Urea Nitrogen 26 mg/dL (9-20); Calcium 8.3 mg/dL (8.4-10.2); Carbon Dioxide 22 mmol/L (22-30); Chloride 112 mmol/L (98-107); Glucose 97 mg/dL (74-99); Iron 47 ug/dL (49-181); Non-African American GFR(MDRD) >60 (>60 ml/min/1.73 sqM); Potassium 4.4 mmol/L (3.5-5.1); Sodium 143 mmol/L (137-145)
[2016-07-11 07:45] LABS: % Iron Saturation 24.1 % (20-50); Total Iron Binding Capacity 195 ug/dL (261-462)
[2016-07-11] MEDS ORDERED: VANCOMYCIN 1,000 MG in SODIUM CHLORIDE 0.9% 250 ML IVPB SCH (08:00)
[2016-07-11 08:25] LABS: Vitamin B12 357 pg/mL
[2016-07-11 08:58] LABS: Add Differential Manual Differential
[2016-07-11] MEDS: NICOTINE 21MG/24HR PATCH TRANSDERM SCH (09:03)
[2016-07-11] MEDS: levETIRAcetam 500 MG TAB PO SCH (09:03)
[2016-07-11 09:04] LABS: Nucleated Red Blood Cells 0 /100 WBC (0-0); Total Cells Counted 200
[2016-07-11 09:05] LABS: Manual Review Performed
[2016-07-11] MEDS: VANCOMYCIN 1,250 MG in SODIUM CHLORIDE 0.9% 250 ML IVPB SCH (09:47)
[2016-07-11 10:25] VITALS: BMI 19.6
[2016-07-11] MEDS: IPRATROPIUM-ALBUTEROL 3 ML NEB INHALATION SCH ×4 (11:09→18:29)
[2016-07-11] MEDS: BUDESONIDE 1 MG/2 ML NEBU INHALATION SCH ×2 (11:09→18:29)
--- NOTE | 2016-07-11 11:09 | HP ---
DATE OF ADMISSION: CHIEF COMPLAINT: Short of breath. HISTORY OF PRESENT ILLNESS: Mr. Kimbrough is a 70-year-old male with a known history of recently diagnosed glioblastoma status post surgery and currently undergoing chemoradiation. Came to the hospital with complaints of short of breath and cough with productive sputum, worsening for the past one week. The patient failed outpatient antibiotic therapy and came into the hospital. As per the family, the patient had a CT of the chest as well as abdomen and pelvis was done at [facility] in April. At that time no metastatic disease had been identified. CT in the ER showed bilateral pulmonary masses with cavitation on the left side, lung abscess versus necrotic tumor. The patient was admitted to the hospital and pulmonary is planning for bronchoscopy. Currently being continued on antibiotics in the form of vancomycin and ( ). Otherwise, the patient is a poor historian. Most of the history was taken from his daughter at bedside. The patient also is hard of hearing. No fever, no chills. No nausea or vomiting. Denied any aspiration. REVIEW OF SYSTEMS: CONSTITUTIONAL: No fever. No chills. Patient does have weakness and new weight loss. CARDIOVASCULAR: No chest pain. Patient does have shortness of breath. No leg swelling. RESPIRATORY: Patient does have cough with sputum production and is short of breath. ABDOMEN: No nausea or vomiting, abdominal pain. No radiation. Complete review of systems negative except the above. PAST MEDICAL HISTORY: 1. Glioblastoma, currently undergoing chemoradiation status post surgery. 2. Hypertension. 3. Osteoarthritis. 4. History of gastrointestinal bleed. 5. History of collapse lung due to broken ribs, had chest tube in the past. 6. Diverticulosis. 7. Benign polyps removed by colonoscopy. 8. Peripheral vascular disease. 9. Cataracts. PAST SURGICAL HISTORY: 1. 05/01/16brain tumor excised. 2. Colonoscopic polypectomy. 3. Vasectomy. 4. Right ankle ORIF with plate and screws. 5. Chest tube due to collapsed lung. 6. Brain surgery. SOCIAL HISTORY: Patient resides with his daughter. Currently every day smoker, started smoking at age 16 and smokes 1 pack per day. He is now in the process of quitting and has not smoked in the last 2 days. The patient drinks a couple of drinks on Wednesday with his friends. Occasional marijuana use. FAMILY HISTORY: Mother had dementia, diverticulosis and osteoarthritis. Mother at the age of 88 years. Father had syncope, alcohol abuse and father in early 60s. HOME MEDICATIONS: Lisinopril, Keflex, Pepcid, ( ) 5, Mucinex, nicotine patch, ( ), Bactrim and ( ) and Keppra. No known drug allergies. PHYSICAL EXAMINATION: This is a 70-year-old male lying in the bed. Awake, alert, oriented, x3. Appears to be in no apparent distress. The patient is hard of hearing. VITALS: Blood pressure is 125/64, pulse is 90, respirations 18, temperature ( ), 2 liters of nasal cannula. HEENT: Atraumatic. ( ) . Patient is hard of hearing. NECK: Supple. No JVD. CVS: S1, S2 heard. No murmurs, no gallop. LUNGS: Bilateral air entry is present, rhonchi positive in mid and lower lungs. No wheezing. Nonlabored breathing. ABDOMEN: Soft, nontender. Bowel sounds present. COLOR MIXER: ( ) No focal deficit. EXTREMITIES: No edema. Pulses positive bilaterally. PSYCHIATRIC: Cooperative. LABORATORY DATA: WBC 17.7, hemoglobin 8.0, platelets 173, sodium 140, potassium 4.7, improved from 5.3; chloride 111, bicarb is 19, BUN 42, creatinine 1.36. Albumin 2.8. UA negative. CT chest: Bilateral pulmonary masses with some cavitation on the left side. Possibility of lung abscess as well as necrotic tumor. IMPRESSION: 1. Acute hypoxic respiratory failure secondary to lung masses versus necrotic tumor versus infection. 2. Bilateral pneumonia and suspected necrotic tumor versus lung abscess versus masses. 3. Small left-sided pleural effusion. 4. Glioblastoma status post surgical resection in April and currently undergoing chemoradiation. 5. Sepsis likely due to pneumonia. 6. Normocytic anemia. 7. Hypertension. 8. Degenerative joint disease of multiple joints. 9. History of benign polyps removed during colonoscopy. 10. History of gastrointestinal bleed. 11. Peripheral vascular disease. 12. Deep venous thrombosis prophylaxis. Discussion and plan: The patient will be continued on antibiotics of vancomycin and Zosyn. Pulmonary is following this patient and is planning for bronchoscopy with biopsy of the masses versus abscess. Oncology has been consulted. We will continue the home medications and breathing treatments and follow up closely. Prognosis guarded. Further recommendations based on the clinical course.
[2016-07-11] MEDS: SODIUM CHLORIDE 0.9% 1,000 ML IV SCH ×2 (12:30)
[2016-07-11] MEDS ORDERED: levETIRAcetam 500 MG TAB ONE (21:00)
[2016-07-12] MEDS: PIPERACILLIN-TAZOBACTAM 3.375 GM in DEXTROSE/WATER 1 50ML.BAG IVPB SCH ×3 (02:26→15:32)
[2016-07-12] MEDS: VANCOMYCIN 1,250 MG in SODIUM CHLORIDE 0.9% 250 ML IVPB SCH ×3 (07:38→21:30)
[2016-07-12] MEDS: levETIRAcetam 500 MG TAB PO SCH ×3 (07:39→21:32)
[2016-07-12 07:48] LABS: Anisocytosis Slight; Aty Lym Flag Slight; CH 31.8; CHCM 32.1; Immature Gran Flag Marked; MCH 31.7 pg (25.0-35.0); MCHC 31.7 g/dL (31.0-37.0); MCV 99.9 fL (80.0-100.0); Macrocytosis Moderate; Mean Platelet Volume 8.1; RBC 1.93 m/uL (4.30-5.90); RDW 19.3 % (11.5-15.5); WBC 13.4 k/uL (3.8-10.6); WBC (Perox) 13.94
[2016-07-12 07:58] LABS: HCT 19.3 % (39.0-53.0); HGB 6.1 gm/dL (13.0-17.5)
[2016-07-12 08:00] LABS: Blood Urea Nitrogen 19 mg/dL (9-20); Chloride 113 mmol/L (98-107); Glucose 92 mg/dL (74-99); Non-African American GFR(MDRD) >60 (>60 ml/min/1.73 sqM); Sodium 141 mmol/L (137-145)
[2016-07-12 08:02] LABS: Anion Gap 6 mmol/L; Carbon Dioxide 22 mmol/L (22-30)
[2016-07-12] MEDS: BUDESONIDE 1 MG/2 ML NEBU INHALATION SCH ×2 (08:27→22:39)
[2016-07-12] MEDS: IPRATROPIUM-ALBUTEROL 3 ML NEB INHALATION SCH ×4 (08:27→22:40)
[2016-07-12] MEDS: SODIUM CHLORIDE 0.9% 1,000 ML IV SCH ×3 (08:32→15:32)
--- NOTE | 2016-07-12 08:35 | PN ---
Albert Kimbrough is a 70-year-old with history of glioblastoma multiforme diagnosed back in April. The patient came into the hospital with pleuritic chest pain, cough, shortness of breath for 5 to 10 day duration. Patient has bilateral densities as well as cavitary pneumonia on the left side with dense lesion on the left side highly suggestive of infectious gram-negative mixed bacterial pneumonia; however, her current neoplastic process cannot be excluded. His severity of pain is slightly better. Still has cough though. He is afebrile now with temperature 97.9, saturation 98% on 3 liters. Blood pressure 130/75. His current medications reviewed and include Tylenol with Codeine, DuoNeb, Pulmicort, Keppra, Narcan, Zosyn and vancomycin. Culture results and reports are reviewed. Sputum cultures and the blood culture are pending; however, preliminary urine and blood cultures are negative. CT scan finding dictated previously. IMPRESSION: 1. Bilateral dense pneumonia with acute hypoxic respiratory failure. 2. Pleuritic chest pain related to above. 3. Neoplastic process cannot be excluded. 4. History of glioblastoma multiforme status post resection. On examination. HEENT EXAMINATION: Otherwise unremarkable, evidence of prior surgery. NECK: Supple without any lymphadenopathy. LUNGS: Bilateral good air entry with decreased air entry at the bases. HEART: Regular rate and rhythm. S1 and S2 audible. ABDOMEN: Soft. NEUROLOGICAL EXAMINATION: Awake and alert. PLAN AND RECOMMENDATIONS: As above. Will obtain a follow-up chest x-ray. Continue current antibiotics. Likely bronchoscopy and lung biopsy sometime early next week.
[2016-07-12] MEDS: NICOTINE 21MG/24HR PATCH TRANSDERM SCH (08:42)
[2016-07-12 09:21] LABS: Add Differential Manual Differential
[2016-07-12 09:25] LABS: Band Neutrophils % 2.5 %; Metamyelocytes % 2.5 %; Nucleated Red Blood Cells 0 /100 WBC (0-0); Total Cells Counted 200
[2016-07-12 09:26] LABS: Manual Review Performed
--- NOTE | 2016-07-12 10:09 | XR ---
EXAMINATION TYPE: XR chest 1V portable DATE OF EXAM: 07/12/2016 9:58 AM COMPARISON: 07/09/2016 HISTORY: Shortness of breath TECHNIQUE: Single frontal view of the chest is obtained. FINDINGS: Left-sided consolidation pleural effusion or mass again noted. Chronic rib deformity seen. Arthropathy shoulders. No pneumothorax. Heart size stable. IMPRESSION: 1. Left-sided consolidation pleural effusion or mass are stable.
[2016-07-12] MEDS: HYDROcodone/APAP 5-325MG 1 EACH TAB PO PRN ×2 (12:17→21:18)
[2016-07-12] MEDS ORDERED: VANCOMYCIN TROUGH DUE 1 EACH MISC MISCELLANE ONE (20:00)
[2016-07-13] MEDS: SODIUM CHLORIDE 0.9% 1,000 ML IV SCH ×3 (00:06→15:47)
[2016-07-13] MEDS: PIPERACILLIN-TAZOBACTAM 3.375 GM in DEXTROSE/WATER 1 50ML.BAG IVPB SCH ×4 (00:09→22:38)
--- NOTE | 2016-07-13 07:01 | PN ---
DATE OF SERVICE: 07/12/2016 INTERVAL HISTORY: Mr. Kimbrough is a 70-year-old male with known history of recent diagnosis of glioblastoma, status post surgery and currently undergoing chemoradiation admitted to the hospital with short of breath, cough and sputum production for the past one week and failed outpatient therapy. Patient had a CT of the chest done in the ER showed bilateral pulmonary masses with cavitation of the left side and suspected lung abscess versus necrotic tumor. On broad spectrum antibiotics. Leukocytosis is much improved now. Otherwise, patient was found anemia with hemoglobin of 6.1 today. Patient is undergoing 1 unit of PRBC blood transfusion. Patient feels weak otherwise. Denied any complaints of worsening short of breath, no chest pain. Patient does have generalized weakness and fatigue. ROS. Constitutional : no fever/chills. generalized weakness CARDIOVASCULAR: No chest pain. No worsening short of breath. No leg swelling. ABDOMEN: No nausea, vomiting, abdominal pain. RESPIRATORY: No cough or sputum production. No worsening shortness of breath. ENDOCRINE: Negative. PSYCHIATRY: Negative. SKIN: Negative. MUSCULOSKELETAL: Negative. All other 14-point review of systems negative except as above. CURRENT MEDICATIONS: Reviewed. PHYSICAL EXAMINATION: A 70-year-old male lying in the bed. Awake, alert, oriented x3. Appears to be in no apparent distress. VITALS: Blood pressure is 133/62, pulse is 97, respirations 16, temperature afebrile, pulse ox is 96% on 3 L nasal cannula. HEENT: Atraumatic, normocephalic. Neck is supple. No JVD. CVS EXAM: S1, S2 heard. No murmurs, no gallop, no rub. LUNGS: Bilateral air entry is present. Decreased breath sounds bilateral basally. Nonlabored breathing. ABDOMEN: Soft, nontender. Bowel sounds present. 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 No focal deficit. EXTREMITIES: No edema. Pulses palpable bilaterally. No clubbing or cyanosis. PSYCHIATRIC: Cooperative. LABORATORY DATA: WBC 13.4, hemoglobin 6.1, platelets 154. Sodium 141, potassium 4.0, chloride 113, bicarb 22, BUN 19, creatinine 0.8. IMPRESSION: 1. Acute hypoxic respiratory failure secondary to lung mass versus necrotic tumor with infection. 2. Bilateral pneumonia, suspected necrotic tumor versus lung abscess versus masses. 3. Recently diagnosed glioblastoma, currently undergoing chemoradiation. Patient did have surgical resection in April. 4. Sepsis secondary to pneumonia. 5. Acute kidney injury, resolved. 6. Symptomatic anemia, possible acute blood loss anemia due to chemotherapy related. 7. Normocytic anemia. 8. Hypertension. 9. Degenerative joint disease of multiple joints. 10. History of benign polyps removed during colonoscopy. 11. History of gastroesophageal reflux disease, gastrointestinal bleed. 12. Peripheral vascular disease. 13. Deep venous thrombosis prophylaxis. DISCUSSION AND PLAN: Patient will be continued on antibiotics in the form of vancomycin and Zosyn. Pulmonary is planning for possible bronchoscopy early next week. Will continue the current management. Will transfuse 1 U PRBC and follow up closely. Will monitor H&H and further recommendations based on the clinical course. Prognosis guarded. MTDD
[2016-07-13] MEDS: IPRATROPIUM-ALBUTEROL 3 ML NEB INHALATION SCH ×4 (08:13→20:26)
[2016-07-13] MEDS: BUDESONIDE 1 MG/2 ML NEBU INHALATION SCH ×2 (08:13→20:27)
--- NOTE | 2016-07-13 08:38 | XR ---
EXAMINATION TYPE: XR chest 1V portable DATE OF EXAM: 07/13/2016 8:31 AM CLINICAL HISTORY: Difficulty breathing and pneumonia progress study. TECHNIQUE: Single AP portable upright view of the chest is obtained. COMPARISON: Chest x-ray from one day earlier and CT chest 4 days earlier FINDINGS: There is small left pleural effusion. There is persistent left lower lung airspace opacity . Background chronic emphysematous change is present. Cardiac silhouette size is stable and upper bee its of normal with atherosclerotic thoracic aorta. Scattered suspicious nodules on CT are less well s een on x-ray. Old right lateral rib fractures are redemonstrated IMPRESSION: Overall stable findings, chronic emphysematous change with small left pleural effusion and left lower lung infiltrate and/or atelectasis all redemonstrated. Suspicious nodules bilaterally on CT less well seen on plain films.
[2016-07-13 08:54] LABS: Anisocytosis Slight; CHCM 33.4; HCT 22.1 % (39.0-53.0); HDW 3.13; HGB 7.3 gm/dL (13.0-17.5); Immature Gran Flag Marked; MCH 31.8 pg (25.0-35.0); MCV 96.5 fL (80.0-100.0); Macrocytosis Slight; Mean Platelet Volume 8.1; RBC 2.29 m/uL (4.30-5.90); WBC 15.7 k/uL (3.8-10.6); WBC (Perox) 15.03
[2016-07-13 09:04] LABS: Anion Gap 8 mmol/L; Blood Urea Nitrogen 15 mg/dL (9-20); Calcium 7.8 mg/dL (8.4-10.2); Carbon Dioxide 21 mmol/L (22-30); Chloride 113 mmol/L (98-107); Glucose 105 mg/dL (74-99); Non-African American GFR(MDRD) >60 (>60 ml/min/1.73 sqM); Potassium 3.7 mmol/L (3.5-5.1); Sodium 142 mmol/L (137-145)
[2016-07-13] MEDS: VANCOMYCIN 1,250 MG in SODIUM CHLORIDE 0.9% 250 ML IVPB SCH ×2 (09:29→20:13)
[2016-07-13] MEDS: HYDROcodone/APAP 5-325MG 1 EACH TAB PO PRN ×2 (09:30→20:56)
[2016-07-13] MEDS: levETIRAcetam 500 MG TAB PO SCH ×2 (09:32→20:14)
[2016-07-13] MEDS: methylPREDNISolone SOD SUCCI 40 MG/ML 1 ML VIAL IV SCH ×2 (09:32→20:13)
[2016-07-13] MEDS: NICOTINE 21MG/24HR PATCH TRANSDERM SCH (09:33)
[2016-07-13 10:31] LABS: Add Differential Manual Differential
[2016-07-13 10:34] LABS: Band Neutrophils % 1.5 %; Nucleated Red Blood Cells 0 /100 WBC (0-0); Total Cells Counted 200
--- NOTE | 2016-07-13 13:13 | P.PN ---
Subjective This is a 70-year-old male patient being evaluated and examined today on selective care unit. This patient came into the emergency room with a chief complaint of shortness of breath with a productive cough that had been worsening over the last week. In the outpatient setting the patient was placed on erythromycin and diagnosed with pneumonia the patient then went back to the doctors yesterday stating he had become worse and they changed his antibiotic. Per family at bedside the patient's physician told them they he likely would and up in the emergency room if he didn't respond well to this antibiotic. Patient does have a significant history for brain cancer and is currently undergoing chemo and radiation he had surgery on the brain tumor May 01, per the family. Family also stated that the patient had a CT done at [facility] in April to check for any metastasis he had a small spot on his liver and a small spot on his kidney that were non-concerning at that time, and his lungs had no nodules at that time that they were aware of. We will try to obtain his previous records from [facility] and get his CT results. Patient is nicotine dependence and smokes 1 pack per day. His chest CT results were reviewed, showed bilateral pulmonary masses with cavitation on the left side, lung abscess versus necrotic tumor. Patient was also noted to have a low hemoglobin on admission. The patient did receive 1 unit of packed red blood cells yesterday and is to receive another one today. Upon examination the patient is resting up in bed on 3 L of oxygen, the patient does not use home oxygen. He does complain of a frequent productive cough with rust-colored sputum and hemoptysis. We will schedule the patient for a bronchoscopy with possible biopsies under fluoroscopy tomorrow. Objective - Vital Signs Vital signs: Vital Signs Temp 98.7 F 07/13/16 07:00 Pulse 92 07/13/16 12:41 Resp 16 07/13/16 08:16 BP 126/68 07/13/16 07:00 Pulse Ox 95 07/13/16 07:00 Intake & Output 07/12/16 07/13/16 07/13/16 18:59 06:59 18:59 Intake Total 1220 750 Output Total 200 Balance 1220 550 Intake: IV 600 550 Piperacillin-Tazobactam 3 50 .375 gm In Dextrose/Water 1 50ml.bag @ 12.5 mls/hr IVPB Q8H [facility] Rx#: [id number] Sodium Chloride 0.9% 1, 600 500 000 ml @ 120 mls/hr IV . Q8H20M [facility] Rx#:[id number] Oral 200 Blood Product 620 Rc As-1 Unit 310 [id number] Output: Urine 200 Other: Voiding Method Toilet Toilet Toilet Urinal Urinal Urinal # Voids 3 - Exam GENERAL EXAM: Alert, tired, comfortable in no apparent distress. HEAD: Normocephalic. Healing scars noted to the left side due to recent brain CA surgery. EYES: Normal reaction of pupils, equal size. NOSE: Clear with pink turbinates. THROAT: No erythema or exudates. NECK: No masses, no JVD. CHEST: No chest wall deformity. LUNGS: Bilaterally decreased breath sounds, some scattered rhonchi and wheezes, hemoptysis noted with coughing. CVS: S1 and S2 normal with no audible mumurs, regular rhythm. ABDOMEN: No hepatosplenomegaly, normal bowel sounds, no guarding or rigidity. EXTREMITIES: No edema noted, pedal pulses palpable. SKIN: No rashes CENTRAL NERVOUS SYSTEM: No focal deficits, tone is normal in all 4 extremities. - Labs CBC & Chem 7: 07/13/16 08:20 07/13/16 08:20 Labs: Abnormal Lab Results - Last 24 Hours (Table) 07/12/16 07/13/16 07/13/16 Range/Units 09:35 08:20 08:20 WBC 15.7 H (3.8-10.6) k/uL RBC 2.29 L (4.30-5.90) m/uL Hgb 7.3 L (13.0-17.5) gm/dL Hct 22.1 L (39.0-53.0) % RDW 19.0 H (11.5-15.5) % Plt Count 144 L (150-450) k/uL Neutrophils # (Manual) 10.4 H (1.3-7.7) k/uL Monocytes # (Manual) 2.5 H (0-1.0) k/uL Chloride 113 H (98-107) mmol/L Carbon Dioxide 21 L (22-30) mmol/L Glucose 105 H (74-99) mg/dL Calcium 7.8 L (8.4-10.2) mg/dL Crossmatch See Detail Microbiology - Last 24 Hours (Table) 07/11/16 11:00 Gram Stain - Final Sputum Sputum Culture - Final Assessment and Plan Plan: Assessment Acute hypoxic respiratory failure Bilateral pneumonia suggested of mixed bacterial Left lobe lung abscess versus necrotic tumor Small left pleural effusion Leukocytosis Sepsis Anemia History of glioblastoma multiform status post resection Plan Medications have been reviewed and will be continued. We will continue with the IV antibiotics. We will add on budesonide to his nebulizer treatments. We will try to obtain records from [facility] in [place]. Smoking sensation discussed at length. Plan is to continue with antibiotics, and patient will need a bronchoscopy with biopsies under fluoroscopy Wednesday. Continue on supplemental oxygen to keep oxygen saturations above 92%. Continue with pulmonary hygiene, incentive spirometer, supplemental oxygen and supportive care. We will follow this patient closely. We will continue to monitor labs/ results and adjust treatment as necessary. I performed an examination of the patient and discussed their management with the nurse practitioner. I have reviewed the nurse practitioner's note and agree with the documented findings and plan of care.
--- NOTE | 2016-07-13 15:13 | PN ---
Mr. Albert Kimbrough is a 70-year-old male, seen, evaluated, examined on 5th floor. Patient is postop resection for glioblastoma multiforme/brain cancer. Patient has been on chemo and radiation therapy, came into the hospital with bilateral dense infiltrate versus masses. Patient has very thick purulent sputum production and a big mucous plug has been expectorated which was tinged with blood. He still has chest pain, more on the left side off and on; however, pain medicine has been controlling the pain. He has hemodynamic status is stable, though. Blood pressure 130/60, respiratory rate is 16, pulse 97, temperature 98, saturation 96% on 3L of oxygen. HEENT: Otherwise unremarkable. NECK: Supple without any lymphadenopathy. Neck veins are prominent. No bruits present. LUNGS: Bilateral coarse breath sounds with inspiratory, expiratory fine rhonchi. HEART: Regular rate and rhythm. S1 and S2 audible. ABDOMEN: Soft. No rebound or rigidity. EXTREMITIES: +1 peripheral pulses. NEUROLOGICAL: Otherwise, awake and alert. No focal neurological deficit. The labs are reviewed. Chest x-ray performed today has been reviewed as well. Dense infiltrate on the left side. Culture results and reports are reviewed. The blood cultures and urine cultures: No growth so far. Sputum cultures: Unacceptable superficial sample. Current medications include: 1. Vancomycin and 2. Zosyn along with 3. Pulmicort. 4. Keppra. 5. Naloxone. 6. Habitrol patch. Labs are significant for hemoglobin dropped down to 6.1. White cell count continued to improve, is 13,000. IMPRESSION: 1. Bilateral pneumonia with cavitary dense infiltrate, more so on the left side compared to right side. 2. Severe anemia with intermittent hemoptysis. 3. Sepsis associated with above. 4. Severe chronic obstructive pulmonary disease. Continue updrafts with Pulmicort. Will add DuoNeb. Will add IV steroids as well. Patient will likely need bronchoscopy and lung biopsy. Given that ongoing active inflammation, will hold on doing that, possibly consider next 24 to 48 hours once the patient is slightly more stable. See orders for details.
--- NOTE | 2016-07-13 16:11 | PN ---
DATE OF SERVICE: 07/11/2016 INTERVAL HISTORY: Mr. Kimbrough is a 70-year-old male with recent history of glioblastoma status post surgery and currently undergoing chemoradiation, admitted to the hospital with shortness of breath, cough, and sputum production worsening for the past one week. Patient failed outpatient antibiotic therapy and came to the hospital. In the ER, CT of the chest showed bilateral lower pulmonary masses with cavitation on the left side; lung abscess versus necrotic tumor is being considered. Currently on broad spectrum IV antibiotics. Patient is clinically improving now. Pulmonary is planning for bronchoscopy for possible biopsy next week. Otherwise, the patient denied any complaints of chest pain. No worsening short of breath. No nausea, vomiting or abdominal pain. Tolerating p.o. diet. No acute overnight issues. REVIEW OF SYSTEMS: CONSTITUTIONAL: No fever. No chills. RESPIRATORY: No cough or sputum production. CARDIOVASCULAR: No chest pain or shortness of breath. ABDOMEN: No nausea, vomiting or abdominal pain. GENITOURINARY: Negative. ENDOCRINE: Negative. PSYCHIATRY: Negative. SKIN: Negative. All other fourteen point review of systems negative except as above. CURRENT MEDICATIONS: Reviewed. PHYSICAL EXAMINATION: A 70-year-old male lying comfortably, alert and oriented x3, appears in no apparent distress. VITALS: Blood pressure is 125/59, pulse is 104, respiratory rate 16, temperature afebrile, pulse ox 96% on 3 nasal cannula. HEENT: Atraumatic, normocephalic. Neck is supple. No JVD. CVS: S1, S2 heard. No murmurs, no gallop. LUNGS: Bilateral air entry is present. Minimal rhonchi at the left side. No wheezing. Nonlabored breathing. ABDOMEN: Soft, nontender. Bowel sounds present. 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 No focal deficit. EXTREMITIES: No edema. Pulses palpable bilaterally. No clubbing or cyanosis. PSYCHIATRIC: Cooperative. LABORATORY DATA: WBC 16.3, hemoglobin 7.2, platelets 170. Sodium 143, potassium 4.2, chloride 112, bicarb 22, BUN 26, creatinine 1.0. vitamin B12 level is 357. IMPRESSION: 1. Acute hypoxic respiratory failure secondary to lung mass versus necrotic tumor versus pneumonia. 2. Bilateral dense pneumonia, suspected necrotic tumor versus lung mass versus masses. 3. Recently diagnosed glioblastoma status post surgical resection in April and currently undergoing chemoradiation. 4. Sepsis likely due to pneumonia. 5. Normocytic anemia. 6. Hypertension. 7. Degenerative joint disease of multiple joints. 8. History of benign polyps removed during colonoscopy. 9. History of gastrointestinal bleed. 10. Peripheral vascular disease. 11. Deep venous thrombosis prophylaxis. DISCUSSION AND PLAN: The patient will continue with antibiotics and pulmonary is planning for bronchoscopy and biopsy next week. Will continue the current management and follow up closely. Further recommendations based on the clinical course.
[2016-07-14] MEDS: SODIUM CHLORIDE 0.9% 1,000 ML IV SCH ×3 (02:21→20:09)
[2016-07-14] MEDS: PIPERACILLIN-TAZOBACTAM 3.375 GM in DEXTROSE/WATER 1 50ML.BAG IVPB SCH ×3 (05:51→22:16)
[2016-07-14 09:01] LABS: Anisocytosis Slight; CH 31.6; CHCM 33.6; HCT 23.9 % (39.0-53.0); HDW 3.35; Immature Gran Flag Marked; MCH 31.6 pg (25.0-35.0); MCHC 33.3 g/dL (31.0-37.0); Macrocytosis Slight; Mean Platelet Volume 8.2; RBC 2.51 m/uL (4.30-5.90); RDW 18.6 % (11.5-15.5); WBC 11.4 k/uL (3.8-10.6); WBC (Perox) 11.45
[2016-07-14 09:17] LABS: Anion Gap 7 mmol/L; Blood Urea Nitrogen 22 mg/dL (9-20); Calcium 8.1 mg/dL (8.4-10.2); Carbon Dioxide 21 mmol/L (22-30); Chloride 116 mmol/L (98-107); Glucose 123 mg/dL (74-99); Non-African American GFR(MDRD) >60 (>60 ml/min/1.73 sqM); Potassium 3.9 mmol/L (3.5-5.1); Sodium 144 mmol/L (137-145)
--- NOTE | 2016-07-14 09:18 | XR ---
EXAMINATION TYPE: XR chest 1V portable DATE OF EXAM: 07/14/2016 8:40 AM HISTORY: Shortness of breath. COMPARISON: 07/13/2016 TECHNIQUE: Single view of the chest is submitted. FINDINGS: Demonstrated are scattered senescent parenchymal change. Persistent left lower lobe infiltrate with parapneumonic effusion. Mild atelectasis right lower lobe. The heart is stable. Hilar and mediastinal structures are within normal limits. Degenerative changes are seen of the dorsal spine. IMPRESSION: 1. Persistent left lower lobe infiltrate with parapneumonic effusion. Mild atelectasis right lower l obe.
[2016-07-14] MEDS: IPRATROPIUM-ALBUTEROL 3 ML NEB INHALATION SCH ×4 (09:28→21:15)
[2016-07-14] MEDS: BUDESONIDE 1 MG/2 ML NEBU INHALATION SCH ×2 (09:29→21:14)
[2016-07-14] MEDS: NICOTINE 21MG/24HR PATCH TRANSDERM SCH (09:58)
[2016-07-14] MEDS: methylPREDNISolone SOD SUCCI 40 MG/ML 1 ML VIAL IV SCH ×2 (09:58→20:09)
[2016-07-14] MEDS: VANCOMYCIN 1,250 MG in SODIUM CHLORIDE 0.9% 250 ML IVPB SCH ×2 (09:58→20:11)
[2016-07-14] MEDS: levETIRAcetam 500 MG TAB PO SCH ×2 (09:58→20:10)
[2016-07-14 10:38] LABS: Add Differential Manual Differential
[2016-07-14 10:42] LABS: Manual Review Performed; Myelocytes % 13.5 %; Nucleated Red Blood Cells 0 /100 WBC (0-0); Total Cells Counted 200
--- NOTE | 2016-07-14 11:33 | P.PN ---
Subjective This is a 70-year-old male patient being evaluated and examined today on selective care unit. This patient came into the emergency room with a chief complaint of shortness of breath with a productive cough that had been worsening over the last week. In the outpatient setting the patient was placed on erythromycin and diagnosed with pneumonia the patient then went back to the doctors yesterday stating he had become worse and they changed his antibiotic. Per family at bedside the patient's physician told them they he likely would and up in the emergency room if he didn't respond well to this antibiotic. Patient does have a significant history for brain cancer and is currently undergoing chemo and radiation he had surgery on the brain tumor May 01, per the family. Family also stated that the patient had a CT done at [facility] in April to check for any metastasis he had a small spot on his liver and a small spot on his kidney that were non-concerning at that time, and his lungs had no nodules at that time that they were aware of. We will try to obtain his previous records from [facility] and get his CT results. Patient is nicotine dependence and smokes 1 pack per day. His chest CT results were reviewed, showed bilateral pulmonary masses with cavitation on the left side, lung abscess versus necrotic tumor. Patient was also noted to have a low hemoglobin on admission. The patient did receive 1 unit of packed red blood cells yesterday and is to receive another one today. Upon examination the patient is resting up in bed on 3 L of oxygen, the patient does not use home oxygen. He does complain of a frequent productive cough with rust-colored sputum and hemoptysis, however has been less frequent today. Patient is scheduled to undergo a bronchoscopy with possible biopsies under fluoroscopy today. Objective - Vital Signs Vital signs: Vital Signs Temp 97.5 F L 07/14/16 07:00 Pulse 92 07/14/16 09:42 Resp 16 07/14/16 07:00 BP 134/60 07/14/16 07:00 Pulse Ox 96 07/14/16 07:00 Intake & Output 07/13/16 07/14/16 07/14/16 18:59 06:59 18:59 Intake Total 1140 1320 Balance 1140 1320 Intake: IV 840 960 Sodium Chloride 0.9% 1, 840 960 000 ml @ 120 mls/hr IV . Q8H20M [facility] Rx#:[id number] Intake, IV Titration 300 Amount Piperacillin-Tazobactam 3 50 .375 gm In Dextrose/Water 1 50ml.bag @ 12.5 mls/hr IVPB Q8H [facility] Rx#: [id number] Vancomycin 1,250 mg In 250 Sodium Chloride 0.9% 250 ml @ 125 mls/hr IVPB Q12HR [facility] Rx#:[id number] Oral 50 Blood Product 310 Rc As-1 Unit 310 [id number] Other: Voiding Method Toilet Toilet Toilet Urinal Urinal Urinal # Voids 3 - Exam GENERAL EXAM: Alert, less tired today, comfortable in no apparent distress. HEAD: Normocephalic. Healing scars noted to the left side due to recent brain CA surgery. EYES: Normal reaction of pupils, equal size. NOSE: Clear with pink turbinates. THROAT: No erythema or exudates. NECK: No masses, no JVD. CHEST: No chest wall deformity. LUNGS: Bilaterally decreased breath sounds, some scattered rhonchi and wheezes CVS: S1 and S2 normal with no audible mumurs, regular rhythm. ABDOMEN: No hepatosplenomegaly, normal bowel sounds, no guarding or rigidity. EXTREMITIES: No edema noted, pedal pulses palpable. SKIN: No rashes CENTRAL NERVOUS SYSTEM: No focal deficits, tone is normal in all 4 extremities. - Labs CBC & Chem 7: 07/14/16 08:12 07/14/16 08:12 Labs: Abnormal Lab Results - Last 24 Hours (Table) 07/12/16 07/14/16 07/14/16 Range/Units 09:35 08:12 08:12 WBC 11.4 H (3.8-10.6) k/uL RBC 2.51 L (4.30-5.90) m/uL Hgb 8.0 L (13.0-17.5) gm/dL Hct 23.9 L (39.0-53.0) % RDW 18.6 H (11.5-15.5) % Plt Count 134 L (150-450) k/uL Chloride 116 H (98-107) mmol/L Carbon Dioxide 21 L (22-30) mmol/L BUN 22 H (9-20) mg/dL Glucose 123 H (74-99) mg/dL Calcium 8.1 L (8.4-10.2) mg/dL Crossmatch See Detail Microbiology - Last 24 Hours (Table) 07/09/16 17:36 Blood Culture - Preliminary Blood No Growth after 96 hours Assessment and Plan Plan: Assessment Acute hypoxic respiratory failure Bilateral pneumonia suggested of mixed bacterial Left lobe lung abscess versus necrotic tumor Small left pleural effusion Leukocytosis Sepsis Anemia History of glioblastoma multiform status post resection Plan Medications have been reviewed and will be continued. We will continue with the IV antibiotics. Continue with nebulizer treatments. We will try to obtain records from [facility] in [place]. Smoking sensation discussed at length. Plan is to continue with antibiotics, and patient will need a bronchoscopy with biopsies under fluoroscopy today. Benefits and risks of procedure have been explained to the patient and the patient wishes to continue with procedure. All questions have been answered. Continue on supplemental oxygen to keep oxygen saturations above 92%. Continue with pulmonary hygiene, incentive spirometer, supplemental oxygen and supportive care. We will follow this patient closely. We will continue to monitor labs/results and adjust treatment as necessary. I performed an examination of the patient and discussed their management with the nurse practitioner. I have reviewed the nurse practitioner's note and agree with the documented findings and plan of care.
--- NOTE | 2016-07-14 12:16 | PN ---
DATE OF SERVICE: 07/13/2016 INTERVAL HISTORY: Mr. Kimbrough is a 70-year-old male with known history of recent diagnosis of glioblastoma, status post surgery and currently undergoing chemoradiation, admitted to the hospital with shortness of breath and cough and sputum production for the past one week and failed outpatient therapy. Patient had a CT chest shows bilateral pulmonary nodules with cavitation of the left side and suspected lung abscess versus necrotic tumor. Currently on broad-spectrum antibiotics. Pulmonary is following and recommending a bronchoscopy, possibly tomorrow. Otherwise, hemoglobin is slightly improved to around 7, patient will be undergoing around 1 unit of PRBC today. Chest x-ray showed chronic emphysematous changes with small left pleural effusion and left lower lobe infiltrate/atelectasis already demonstrated, suspicious nodules bilaterally on the CT, less well seen on plain films. Currently, patient denied any complaints of chest pain or short of breath and no acute overnight issues. Complete review of systems negative except as above. Current Medications are reviewed. PHYSICAL EXAMINATION: A 70-year-old male lying in bed comfortably, awake, alert, oriented times three. The patient is hard of hearing. VITALS: Blood pressure 135/65, pulse is 78, respirations 16, temperature afebrile. Pulse ox 98% on room air. HEENT: Atraumatic, normocephalic. Neck is supple. No JVD. CVS: S1, S2 heard. No murmur, no gallop. LUNGS: Bilateral air entry is present. Decreased bilateral air entry basally and crackles positive. Nonlabored breathing. Rhonchi positive. ABDOMEN: Soft, nontender. Bowel sounds present. CENTRAL NERVOUS SYSTEM: Awake, alert and oriented x3. No focal deficits. The patient is hard of hearing. EXTREMITIES: No edema. Pulses palpable bilaterally. No clubbing or cyanosis. PSYCHIATRIC: Cooperative. LABORATORY DATA: WBC 15.7, hemoglobin 7.3, platelets 144. Sodium 142, potassium 3.7, chloride 113, bicarb is 21, BUN 15, creatinine 0.79. Calcium 7.8. IMPRESSION: 1. Acute hypoxic respiratory failure secondary to lung mass versus necrotic tumor with infection. 2. Bilateral pneumonia necrotic versus lung abscess versus masses. 3. Recently diagnosed glioblastoma. Currently undergoing chemoradiation. The patient did have surgical resection in April. 4. Sepsis secondary to pneumonia. 5. Acute kidney injury. 6. Symptomatic anemia, possible acute blood loss anemia likely due to chemotherapy related. Hemoglobin is stable now. Patient will be given 1 unit of PRBC to keep hemoglobin greater than 8. 7. Normocytic anemia. 8. Hypertension. 9. Degenerative joint disease of multiple joints. 10. History of benign polyps removed during colonoscopy. 11. History of gastroesophageal reflux disease. 12. Gastrointestinal bleed. 13. Peripheral vascular disease. 14. Deep venous thrombosis prophylaxis. DISCUSSION AND PLAN: Patient will be continued on antibiotics. Continue to monitor blood transfusion today. Continue the current management and possible bronchoscopic with biopsy tomorrow. Continue the current management. Further recommendations based on the clinical course.
[2016-07-14] MEDS ORDERED: IV FLUID CONTINUATION 1,000 ML IV ONE (13:47)
[2016-07-14] MEDS ORDERED: KETAMINE 10 MG/ML 20 ML VIAL ONE (13:58)
[2016-07-14] MEDS ORDERED: fentaNYL (PF) 50 MCG/ML 2 ML AMP ONE (13:58)
[2016-07-14] MEDS ORDERED: LIDOCAINE 1% INJ 10MG/ML (20 ML MDV) ONE (13:58)
[2016-07-14] MEDS ORDERED: MIDAZOLAM 2 MG/2 ML VIAL ONE (13:58)
[2016-07-14] MEDS ORDERED: GLYCOPYRROLATE 0.2 MG/ML 2 ML VIAL ONE (13:58)
[2016-07-14] MEDS ORDERED: PROPOFOL 10 MG/ML 20 ML VIAL IV ONE (13:58)
[2016-07-14] MEDS ORDERED: LIDOCAINE 2% INJ 20 MG/ML INTRATRACH ONE (14:17)
[2016-07-14] MEDS ORDERED: LIDOCAINE 2%-EPI 1:100,000 20 ML VIAL SQ ONE (14:17)
[2016-07-14] MEDS ORDERED: SODIUM CHLORIDE 0.9% 1,000 ML IV ONE (14:29)
--- NOTE | 2016-07-14 14:44 | XR ---
EXAMINATION TYPE: XR chest 1V portable DATE OF EXAM: 07/14/2016 2:38 PM COMPARISON: 07/14/2016 HISTORY: Shortness of breath TECHNIQUE: Frontal and lateral views of the chest are obtained. FINDINGS: No evidence for pneumothorax. Scattered senescent parenchymal changes noted. Hyperinflation compatible with COPD. Left lower lobe masslike areas persists. Heart size is stable. Mediastinal structures are stable and grossly unremarkable. No evidence for hilar prominence. Degenerative changes dorsal spine. IMPRESSION: 1. No evidence for pneumothorax.
--- NOTE | 2016-07-14 14:45 | FL ---
EXAMINATION TYPE: FL bronchoscopy DATE OF EXAM: 07/14/2016 2:38 PM COMPARISON: NONE HISTORY: Bronchoscopy TECHNIQUE: Fluoroscopy. LEFT LOWER LOBE BIOPSY, FLUORO BTIME 1 MIN 31 SEC, NO IMAGES SCANNED
[2016-07-15] MEDS: SODIUM CHLORIDE 0.9% 1,000 ML IV SCH ×3 (03:17→18:12)
[2016-07-15] MEDS: PIPERACILLIN-TAZOBACTAM 3.375 GM in DEXTROSE/WATER 1 50ML.BAG IVPB SCH ×3 (05:38→22:30)
--- NOTE | 2016-07-15 08:27 | PCN ---
DATE OF PROCEDURE: 07/14/2016 PROCEDURE PERFORMED: Bronchoscopy, transbronchial lung biopsy and bronchoalveolar lavage. INDICATIONS: 1. Acute hypoxic respiratory failure. 2. Dense bilateral infiltrate with a larger on the right side. 3. History of glioblastoma Multiformi status post craniotomy. OPERATIVE DETAILS: For anesthesia, please refer to the anesthesia note. Tip of the scope was passed in the right side through the right nares into the pharyngeal area and subsequently into the laryngeal area. The tip of the scope was passed beyond the vocal cords into the trachea. Diffuse inflammation and extensive mucus plugging was seen over the extensive amount which was clogging the scope. The bronchoscope had to be withdrawn, cleaned, flushed and reinserted. Extensive mucosal erythema, edema bilaterally was seen, more so on the left side compared to right side. Tip of the scope was wedged in the right lower lobe. BAL was performed followed by left lower lobe where BAL was performed as well. 1:100,000 lidocaine with epi was given mixed with saline followed by fluoroscopic guidance. Multiple transbronchial lung biopsy of left lower lobe was performed. Patient tolerated the procedure well. No complication. Postprocedure chest x-ray reviewed and no complication identified.
[2016-07-15] MEDS: BUDESONIDE 1 MG/2 ML NEBU INHALATION SCH ×2 (08:33→19:44)
[2016-07-15] MEDS: IPRATROPIUM-ALBUTEROL 3 ML NEB INHALATION SCH ×4 (08:33→19:44)
[2016-07-15] MEDS: NICOTINE 21MG/24HR PATCH TRANSDERM SCH (10:12)
[2016-07-15] MEDS: methylPREDNISolone SOD SUCCI 40 MG/ML 1 ML VIAL IV SCH ×2 (10:13→20:20)
[2016-07-15] MEDS: VANCOMYCIN 1,250 MG in SODIUM CHLORIDE 0.9% 250 ML IVPB SCH ×2 (10:23→20:20)
[2016-07-15] MEDS: levETIRAcetam 500 MG TAB PO SCH ×2 (10:26→20:20)
--- NOTE | 2016-07-15 11:45 | P.PN ---
Subjective This is a 70-year-old male patient being evaluated and examined today on selective care unit. This patient came into the emergency room with a chief complaint of shortness of breath with a productive cough that had been worsening over the last week. In the outpatient setting the patient was placed on erythromycin and diagnosed with pneumonia the patient then went back to the doctors yesterday stating he had become worse and they changed his antibiotic. Per family at bedside the patient's physician told them they he likely would and up in the emergency room if he didn't respond well to this antibiotic. Patient does have a significant history for brain cancer and is currently undergoing chemo and radiation he had surgery on the brain tumor May 01, per the family. Family also stated that the patient had a CT done at [facility] in April to check for any metastasis he had a small spot on his liver and a small spot on his kidney that were non-concerning at that time, and his lungs had no nodules at that time that they were aware of. We will try to obtain his previous records from [facility] and get his CT results. Patient is nicotine dependence and smokes 1 pack per day. His chest CT results were reviewed, showed bilateral pulmonary masses with cavitation on the left side, lung abscess versus necrotic tumor. Patient was also noted to have a low hemoglobin on admission. The patient did receive 1 unit of packed red blood cells yesterday and is to receive another one today. Upon examination the patient is resting up in bed on 3 L of oxygen, the patient does not use home oxygen. He does complain of a frequent non-productive cough. Patient did undergo a bronchoscopy with possible biopsies under fluoroscopy yesterday and had extensive mucous plugs please see procedure note. Patient is requesting to go home today however this patient could benefit from a few more days of IV antibiotics. Objective - Vital Signs Vital signs: Vital Signs Temp 97.5 F L 07/15/16 07:00 Pulse 55 L 07/15/16 07:00 Resp 16 07/15/16 07:00 BP 152/67 07/15/16 07:00 Pulse Ox 93 L 07/15/16 07:00 Intake & Output 07/14/16 07/15/16 07/15/16 18:59 06:59 18:59 Intake Total 1390 1010 Balance 1390 1010 Weight 62.142 kg 62.142 kg Intake: IV 1340 960 Sodium Chloride 0.9% 1, 840 960 000 ml @ 120 mls/hr IV . Q8H20M [facility] Rx#:[id number] Intake, IV Titration 50 Amount Piperacillin-Tazobactam 3 50 .375 gm In Dextrose/Water 1 50ml.bag @ 12.5 mls/hr IVPB Q8H [facility] Rx#: [id number] Oral 50 Other: Voiding Method Toilet Toilet Urinal Urinal # Voids 1 - Exam GENERAL EXAM: Alert, less tired today, comfortable in no apparent distress. HEAD: Normocephalic. Healing scars noted to the left side due to recent brain CA surgery. EYES: Normal reaction of pupils, equal size. NOSE: Clear with pink turbinates. THROAT: No erythema or exudates. NECK: No masses, no JVD. CHEST: No chest wall deformity. LUNGS: Bilaterally decreased breath sounds at the bases, some scattered rhonchi and wheezes however improved CVS: S1 and S2 normal with no audible mumurs, regular rhythm. ABDOMEN: No hepatosplenomegaly, normal bowel sounds, no guarding or rigidity. EXTREMITIES: No edema noted, pedal pulses palpable. SKIN: No rashes CENTRAL NERVOUS SYSTEM: No focal deficits, tone is normal in all 4 extremities. - Labs CBC & Chem 7: 07/14/16 08:12 07/14/16 08:12 Labs: Abnormal Lab Results - Last 24 Hours (Table) 07/12/16 Range/Units 09:35 Crossmatch See Detail Microbiology - Last 24 Hours (Table) 07/09/16 17:36 Blood Culture - Preliminary Blood No Growth after 120 hours Assessment and Plan Plan: Assessment Acute hypoxic respiratory failure Bilateral pneumonia suggested of mixed bacterial Left lobe lung abscess versus necrotic tumor Small left pleural effusion Leukocytosis Sepsis Anemia History of glioblastoma multiform status post resection Plan Medications have been reviewed and will be continued. Patient is status post bronchoscopy and doing well, however patient could benefit from a few more days of IV antibiotics in the hospital. Patient is requesting to go home and was educated on the benefits of a few more days of antibiotics.. We will continue with the IV antibiotics. Continue with nebulizer treatments. We will try to obtain records from [facility] in [place]. Smoking sensation discussed at length. Continue on supplemental oxygen to keep oxygen saturations above 92%. Continue with pulmonary hygiene, incentive spirometer, supplemental oxygen and supportive care. We will follow this patient closely. We will continue to monitor labs/results and adjust treatment as necessary. I performed an examination of the patient and discussed their management with the nurse practitioner. I have reviewed the nurse practitioner's note and agree with the documented findings and plan of care.
--- NOTE | 2016-07-15 11:56 | PN ---
DATE OF SERVICE: 07/14/2016 INTERVAL HISTORY: Mr. Kibmrough is a 70 -year-old male with a known history of recently diagnosed glioblastoma, status post brain surgery and currently undergoing chemotherapy, chemoradiation admitted to the hospital with shortness of breath and cough and sputum production for the past one week and failed outpatient therapy. The patient had a CT of the chest showed pulmonary nodules with cavitation on the left sided, suspected lung abscess versus necrotic tumor. Currently on broad spectrum antibiotics in the form of vancomycin and Zosyn. Pulmonary is following the patient. The patient did get biopsy and bronchoscopy with left lower lobe biopsy. Chest x-ray showed persistent left lower lobe infiltrates. Otherwise, the patient is clinically improved now. No fever. No chills. No chest pain. No shortness of breath. No nausea or vomiting, no abdominal pain. No acute overnight issues. REVIEW OF SYSTEMS: Complete review of systems negative except as above. CURRENT MEDICATIONS: Reviewed. PHYSICAL EXAMINATION: A 70-year-old male lying in the bed. Awake, alert, oriented, x3. He appears to be in no apparent distress. VITALS: Blood pressure is 130/63, pulse 75, respiratory rate 20, temperature afebrile, pulse ox 98% on 3 L nasal cannula. HEENT: Atraumatic, normocephalic. Neck is supple. No JVD. CVS: S1, S2 heard. No murmurs. No gallop. LUNGS: Bilateral air entry is present and rhonchi positive. Minimal crackles at the bases. Nonlabored breathing. No wheezing. ABDOMEN: Soft, nontender, Bowel sounds present. 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 No focal deficits. EXTREMITIES: No edema. Pulses palpable bilaterally. No clubbing or cyanosis. PSYCHIATRY: Cooperative. LABORATORY DATA: WBC 11.4, hemoglobin 8.0, platelets 134, sodium 141, potassium 3.9, chloride 116, bicarb is 21, BUN 22, creatinine 0.89, calcium 8.1. IMPRESSION: 1. Acute hypoxic respiratory failure secondary to lung mass versus ( ) with infection, improved now. 2. Bilateral pneumonia left lower lobe, necrotic versus lung abscess versus masses status post bronchoscopy today. 3. Recently diagnosed glioblastoma. Currently undergoing chemotherapy. Patient had surgery prior to that. 4. Sepsis secondary to pneumonia. 5. Acute kidney injury, improved. 6. Symptomatic anemia, possibly due to blood loss anemia, likely due to chemotherapy related, the patient underwent 2 units of PRBC and hemoglobin 8.0 today. 7. Normocytic anemia. 8. Hypertension. 9. Degenerative joint disease of multiple joints. 10. History of probable benign polyps removed during colonoscopy. 11. History of gastroesophageal reflux disease. 12. History of gastrointestinal bleed. 13. Peripheral vascular disease. 14. Deep venous thrombosis prophylaxis. DISCUSSION AND PLAN: Patient will be continued on broad spectrum antibiotics in the form of vancomycin and Zosyn and follow up on the bronchoscopy report. Leukocytosis is improving now. Patient is clinically improving. Further recommendations to follow. ( ).
[2016-07-16] MEDS: SODIUM CHLORIDE 0.9% 1,000 ML IV SCH ×2 (02:28→13:19)
[2016-07-16] MEDS: PIPERACILLIN-TAZOBACTAM 3.375 GM in DEXTROSE/WATER 1 50ML.BAG IVPB SCH (05:41)
[2016-07-16] MEDS ORDERED: VANCOMYCIN TROUGH DUE 1 EACH MISC MISCELLANE ONE (08:00)
[2016-07-16 08:32] LABS: Non-African American GFR(MDRD) >60 (>60 ml/min/1.73 sqM)
[2016-07-16 08:54] VITALS: BP 133/64; RESP 16; TEMP 97.7
[2016-07-16 09:12] LABS: Anisocytosis Slight; CH 30.9; CHCM 32.2; HCT 25.7 % (39.0-53.0); HDW 2.93; HGB 8.4 gm/dL (13.0-17.5); Immature Gran Flag Marked; MCH 31.5 pg (25.0-35.0); MCHC 32.7 g/dL (31.0-37.0); MCV 96.4 fL (80.0-100.0); Macrocytosis Slight; Mean Platelet Volume 8.7; RBC 2.67 m/uL (4.30-5.90); RDW 18.3 % (11.5-15.5); WBC 13.5 k/uL (3.8-10.6); WBC (Perox) 13.68
[2016-07-16] MEDS: IPRATROPIUM-ALBUTEROL 3 ML NEB INHALATION SCH ×2 (09:22→12:49)
[2016-07-16] MEDS: BUDESONIDE 1 MG/2 ML NEBU INHALATION SCH (09:22)
[2016-07-16 09:42] LABS: Anion Gap 9 mmol/L; Blood Urea Nitrogen 24 mg/dL (9-20); Calcium 8.2 mg/dL (8.4-10.2); Carbon Dioxide 24 mmol/L (22-30); Chloride 113 mmol/L (98-107); Glucose 114 mg/dL (74-99); Potassium 3.5 mmol/L (3.5-5.1); Sodium 146 mmol/L (137-145)
[2016-07-16 10:06] LABS: Add Differential Manual Differential
[2016-07-16 10:11] LABS: Manual Review Performed; Nucleated Red Blood Cells 0 /100 WBC (0-0); Total Cells Counted 200
[2016-07-16] MEDS: NICOTINE 21MG/24HR PATCH TRANSDERM SCH (10:17)
[2016-07-16] MEDS: levETIRAcetam 500 MG TAB PO SCH (10:17)
[2016-07-16] MEDS ORDERED: Potassium Replacement Protocol 1 EACH MISC MISCELLANE PRN (11:08)
--- NOTE | 2016-07-16 11:09 | P.PN ---
Subjective This is a 70-year-old male patient being evaluated and examined today on selective care unit. This patient came into the emergency room with a chief complaint of shortness of breath with a productive cough that had been worsening over the last week. In the outpatient setting the patient was placed on erythromycin and diagnosed with pneumonia the patient then went back to the doctors yesterday stating he had become worse and they changed his antibiotic. Per family at bedside the patient's physician told them they he likely would and up in the emergency room if he didn't respond well to this antibiotic. Patient does have a significant history for brain cancer and is currently undergoing chemo and radiation he had surgery on the brain tumor May 01, per the family. Family also stated that the patient had a CT done at [facility] in April to check for any metastasis he had a small spot on his liver and a small spot on his kidney that were non-concerning at that time, and his lungs had no nodules at that time that they were aware of. We will try to obtain his previous records from [facility] and get his CT results. Patient is nicotine dependence and smokes 1 pack per day. His chest CT results were reviewed, showed bilateral pulmonary masses with cavitation on the left side, lung abscess versus necrotic tumor. Patient was also noted to have a low hemoglobin on admission. The patient did receive 1 unit of packed red blood cells yesterday and is to receive another one today. Upon examination the patient is resting up in bed on room air. The patient did not require oxygen overnight. Patient states his productive cough has been significantly less frequent today. Patient did undergo a bronchoscopy with possible biopsies under fluoroscopy yesterday and had extensive mucous plugs please see procedure note. Objective - Vital Signs Vital signs: Vital Signs Temp 97.7 F 07/16/16 07:00 Pulse 72 07/16/16 09:22 Resp 16 07/16/16 07:00 BP 133/64 07/16/16 07:00 Pulse Ox 93 L 07/16/16 07:00 Intake & Output 07/15/16 07/16/16 07/16/16 18:59 06:59 18:59 Intake Total 730 2605 Output Total 200 200 Balance 530 2405 Weight 62.142 kg 62.142 kg Intake: IV 1440 Sodium Chloride 0.9% 1, 1440 000 ml @ 120 mls/hr IV . Q8H20M [facility] Rx#:[id number] Intake, IV Titration 250 175 Amount Piperacillin-Tazobactam 3 50 .375 gm In Dextrose/Water 1 50ml.bag @ 12.5 mls/hr IVPB Q8H [facility] Rx#: [id number] Vancomycin 1,250 mg In 250 125 Sodium Chloride 0.9% 250 ml @ 125 mls/hr IVPB Q12HR [facility] Rx#:[id number] Oral 480 990 Output: Urine 200 200 Other: Voiding Method Toilet Toilet Urinal Urinal # Voids 3 3 - Exam GENERAL EXAM: Alert, less tired today, comfortable in no apparent distress. HEAD: Normocephalic. Healing scars noted to the left side due to recent brain CA surgery. EYES: Normal reaction of pupils, equal size. NOSE: Clear with pink turbinates. THROAT: No erythema or exudates. NECK: No masses, no JVD. CHEST: No chest wall deformity. LUNGS: Bilaterally decreased breath sounds at the bases, some scattered rhonchi and wheezes however improved CVS: S1 and S2 normal with no audible mumurs, regular rhythm. ABDOMEN: No hepatosplenomegaly, normal bowel sounds, no guarding or rigidity. EXTREMITIES: No edema noted, pedal pulses palpable. SKIN: No rashes CENTRAL NERVOUS SYSTEM: No focal deficits, tone is normal in all 4 extremities. - Labs CBC & Chem 7: 07/16/16 07:39 07/16/16 07:39 Labs: Abnormal Lab Results - Last 24 Hours (Table) 07/16/16 07/16/16 Range/Units 07:39 07:39 WBC 13.5 H (3.8-10.6) k/uL RBC 2.67 L (4.30-5.90) m/uL Hgb 8.4 L (13.0-17.5) gm/dL Hct 25.7 L (39.0-53.0) % RDW 18.3 H (11.5-15.5) % Sodium 146 H (137-145) mmol/L Chloride 113 H (98-107) mmol/L BUN 24 H (9-20) mg/dL Glucose 114 H (74-99) mg/dL Calcium 8.2 L (8.4-10.2) mg/dL Microbiology - Last 24 Hours (Table) 07/15/16 14:30 Gram Stain - Preliminary Bronchial Washings - Left Bronchial Washings Culture - Preliminary 07/15/16 14:30 Acid Fast Bacilli Culture - Preliminary Bronchial Washings - Left 07/15/16 14:30 Fungal Culture - Preliminary Bronchial Washings - Left 07/09/16 17:36 Blood Culture - Final Blood No Growth after 144 hours Assessment and Plan Plan: Assessment Acute hypoxic respiratory failure Bilateral pneumonia suggested of mixed bacterial Left lobe lung abscess versus necrotic tumor Small left pleural effusion Leukocytosis Sepsis Anemia History of glioblastoma multiform status post resection Plan Patient could be cleared for discharge from a pulmonary standpoint, this patient will follow-up in the outpatient setting within a few days of discharge. Medications have been reviewed and will be continued. Patient is status post bronchoscopy and doing well, We will continue with the antibiotics. Continue with nebulizer treatments. Smoking sensation discussed at length. Continue on supplemental oxygen to keep oxygen saturations above 92 %. Continue with pulmonary hygiene, incentive spirometer, supplemental oxygen and supportive care. We will follow this patient closely. We will continue to monitor labs/results and adjust treatment as necessary. I performed an examination of the patient and discussed their management with the nurse practitioner. I have reviewed the nurse practitioner's note and agree with the documented findings and plan of care.
--- NOTE | 2016-07-16 11:10 | P.PN ---
Subjective Date of service 07/15/2016. Progress note being dictated for Dr. Corrales. Interval history: This is a 70-year-old gentleman admitted with acute hypoxic respiratory failure secondary to left lower lobe lung mass versus necrotic tumor with infection, bilateral pneumonia and multiple other medical issues. Maintained on IV antibiotics. Status post bronchoscopy, reporting extensive mucous plugs; biopsy, cytology pending. Currently requiring 3 L nasal cannula O2, maintaining O2 sats of93%. Nonproductive cough. Afebrile. Denies chest pain, palpitations or increased in shortness of breath. Objective - Vital Signs Vital signs: Vital Signs Temp 98.2 F 07/15/16 15:00 Pulse 78 07/15/16 16:28 Resp 18 07/15/16 15:00 BP 151/69 07/15/16 15:00 Pulse Ox 93 L 07/15/16 15:00 Intake & Output 07/15/16 07/15/16 07/16/16 06:59 18:59 06:59 Intake Total 1010 730 Balance 1010 730 Weight 62.142 kg Intake: IV 960 Sodium Chloride 0.9% 1, 960 000 ml @ 120 mls/hr IV . Q8H20M [facility] Rx#:[id number] Intake, IV Titration 250 Amount Vancomycin 1,250 mg In 250 Sodium Chloride 0.9% 250 ml @ 125 mls/hr IVPB Q12HR [facility] Rx#:[id number] Oral 50 480 Other: Voiding Method Toilet Toilet Urinal Urinal # Voids 1 3 - Exam PHYSICAL EXAM: VITAL SIGNS: As above GENERAL: [Sitting up in bed, tired appearing, no acute distress HEENT: [Pupils equal conjunctiva normal.] NECK: [Supple, no JVD] RESPIRATORY EFFORT:[ Mildly increased] LUNGS: [Diminished, scattered rhonchi, with wheezing, no crackles] CARDIOVASCULAR[ regular S1 and S2, no murmurs rubs or gallops, no edema] GI: [Abdomen soft, nontender, positive bowel sounds.] PSYCH: [Alert and oriented -3, mood and affect normal.] NEURO: [No focal deficits] - Labs CBC & Chem 7: 07/16/16 07:39 07/16/16 07:39 Labs: Abnormal Lab Results - Last 24 Hours (Table) 07/12/16 Range/Units 09:35 Crossmatch See Detail Microbiology - Last 24 Hours (Table) 07/09/16 17:36 Blood Culture - Preliminary Blood No Growth after 120 hours Assessment and Plan Plan: 1. [ Acute hypoxic respiratory failure secondary to left lower lobe lung mass versus necrotic tumor with infection, status post bronchoscopy, biopsy, cytology pending]. 2. [ Bilateral pneumonia ]. 3. [ Recently diagnosed glioblastoma, status post resection, currently undergoing chemotherapy]. 4. [ Sepsis secondary to pneumonia]. 5. [ Acute renal failure]. 6. [ Symptomatic normocytic anemia, possibly blood loss anemia, secondary to chemotherapy, in a patient with history of GI bleed. Status post multiple transfusions of packed RBCs]. 7. [ Hypertension]. 8. Degenerative joint disease, multiple joint involvement 9. History of probable benign polyps removed during colonoscopy 10. Gastroesophageal reflux disease 11. Peripheral vascular disease Plan: Continue on current medication regime ,monitoring and symptomatic treatment. Maintain IV antibiotics for another 24 hours as per pulmonary. Cytology/biopsies as results pending. Increase activity as tolerated. Obtain O2 sat on room air after ambulation for discharge planning .Discharge planning in progress for tomorrow pending pulmonary clearance. Significant other at bedside, updated on plan of care. Verbalized understanding and agreement with. The impression and plan of care has been dictated as directed. : I performed a H&P examination of this patient and discussed the same with the dictator. I agree with the dictator's note. Any additional findings/opinions/ etc. will be noted.
[2016-07-16 12:33] VITALS: PULSE 64
[2016-07-16] MEDS: methylPREDNISolone SOD SUCCI 40 MG/ML 1 ML VIAL IV SCH (13:18)
[2016-07-16] MEDS: VANCOMYCIN 1,250 MG in SODIUM CHLORIDE 0.9% 250 ML IVPB SCH (13:18)
[2016-07-20 09:30] LABS: Mis test requested (Non-blood) PNEJ
[2016-07-20 10:49] LABS: Mis test requested (Non-blood) LEGIONELLA PCR
--- NOTE | 2016-07-27 23:40 | P.DS ---
Providers Date of admission: 07/09/16 19:00 Expected date of discharge: 07/16/16 Attending physician: Abel Corrales Consults: 07/09/16 19:02 Consult Physician Routine Consulting Provider: Gerardo Mcleod Consult Reason/Comments: lung mass Do you want consulting provider notified?: Yes 07/09/16 19:03 Consult Physician Routine Consulting Provider: Iban Fung Consult Reason/Comments: Malignant brain tumor Do you want consulting provider notified?: Yes Primary care physician: [facility] Course: Final Diagnoses: 1. [ Acute hypoxic respiratory failure secondary to left lower lobe lung mass versus necrotic tumor with infection, status post bronchoscopy, biopsy, cytology pending]. 2. [ Bilateral pneumonia ]. 3. [ Recently diagnosed glioblastoma, status post resection, currently undergoing chemotherapy]. 4. [ Sepsis secondary to pneumonia]. 5. [ Acute renal failure]. 6. [ Symptomatic normocytic anemia, possibly blood loss anemia, secondary to chemotherapy, in a patient with history of GI bleed. Status post multiple transfusions of packed RBCs]. 7. [ Hypertension]. 8. Degenerative joint disease, multiple joint involvement 9. History of probable benign polyps removed during colonoscopy 10. Gastroesophageal reflux disease 11. Peripheral vascular disease Hospital course: This is a 70-year-old gentleman admitted with acute hypoxic respiratory failure secondary to left lower lobe lung mass versus necrotic tumor with infection, bilateral pneumonia and multiple other medical issues. Evaluated by pulmonary. Maintained on IV antibiotics. Status post bronchoscopy , reporting extensive mucous plugs; biopsy, cytology pending. AFB smear negative. Cleared for discharge by pulmonary. Patient is being discharged home in a stable condition with guarded prognosis. The impression and plan of care has been dictated as directed as a scribe. : I performed a H&P examination of this patient and discussed the same with the dictator. I agree with the dictator's note. Any additional findings/opinions/ etc. will be noted. Patient Condition at Discharge: Stable Plan - Discharge Summary New Discharge Prescriptions: Amoxic-Pot Clav 875-125Mg [Augmentin 875-125] 1 tab PO Q12HR #20 tablet Ipratropium-Albuterol Nebulize [Duoneb 0.5 mg-3 mg/3 ml Soln] 3 ml INHALATION RT -QID #120 neb Discharge Medication List Lisinopril [Prinivil] 10 mg PO DAILY 05/16/15 [History] Famotidine [Pepcid] 20 mg PO DAILY 07/09/16 [History] HYDROcodone/APAP 5-325MG [Damon 5-325] 1 tab PO Q3H PRN 07/09/16 [History] Mucinex Fast Max Day Time 5 ml PO DAILY PRN 07/09/16 [History] Mucinex Fast Max Night Time 5 ml PO HS PRN 07/09/16 [History] Nicotine 21Mg/24Hr Patch [Habitrol] 1 patch TRANSDERM DAILY 07/09/16 [History] Temozolomide 5 mg PO MOTUWETHFR 07/09/16 [History] Temozolomide [Temodar] 20 mg PO MOTUWETHFR 07/09/16 [History] Temozolomide [Temodar] 100 mg PO MOTUWETHFR 07/09/16 [History] levETIRAcetam [Keppra] 500 mg PO Q12HR 07/09/16 [History] Amoxic-Pot Clav 875-125Mg [Augmentin 875-125] 1 tab PO Q12HR #20 tablet [Rx] Ipratropium-Albuterol Nebulize [Duoneb 0.5 mg-3 mg/3 ml Soln] 3 ml INHALATION RT -QID #120 neb 07/16/16 [Rx] Follow up Appointment(s)/Referral(s): Iban Fung MD [STAFF PHYSICIAN] - 07/17/16 1:00 pm Gerardo Mcleod MD [STAFF PHYSICIAN] - 07/23/16 10:30 am Artis Drew DO [Primary Care Provider] - 08/06/16 3:00 pm Ambulatory/Diagnostic Orders: Complete Blood Count w/diff [LAB.AMB] Time Frame: 3 Days, Location: Determined By Patient Patient Instructions/Handouts: Amoxicillin/Clavulanate Potassium (By mouth), Ipratropium/Albuterol (By breathing), Sepsis (GEN), Anemia (DC), Hypoxia (GEN), Pneumonia (DC) Discharge Disposition: HOME WITH HOME HEALTH SERVICES
== END 2016-07-16 13:10 | disposition home health service (06) | DRG 853 ==
LOC: EC 16:17 → 6SEL 19:00 → 5ONC 07-11 00:17
PROVIDERS: ADMIT Internal Medicine; ATTEND Internal Medicine
PROC: 30233N1 Transfusion of Nonautologous Red Blood Cells into Peripheral Vein, Percutaneous Approach (ICD-10-PCS; 2016-07-13)
PROC: 0BBJ8ZX Excision of Left Lower Lung Lobe, Via Natural or Artificial Opening Endoscopic, Diagnostic (ICD-10-PCS; principal; 2016-07-14 13:45)
PROC: 0B9F8ZX Drainage of Right Lower Lung Lobe, Via Natural or Artificial Opening Endoscopic, Diagnostic (ICD-10-PCS; principal; 2016-07-14 13:45)
DX: A41.9 Sepsis, unspecified organism (principal); J18.9 Pneumonia, unspecified organism; J96.01 Acute respiratory failure with hypoxia; N17.9 Acute kidney failure, unspecified; J90 Pleural effusion, not elsewhere classified; D64.9 Anemia, unspecified; T17.990A Other foreign object in respiratory tract, part unspecified in causing asphyxiation, initial encounter; J44.0 Chronic obstructive pulmonary disease with (acute) lower respiratory infection; C71.9 Malignant neoplasm of brain, unspecified; J98.11 Atelectasis; I10 Essential (primary) hypertension; F12.90 Cannabis use, unspecified, uncomplicated; F17.210 Nicotine dependence, cigarettes, uncomplicated; H91.90 Unspecified hearing loss, unspecified ear; I73.9 Peripheral vascular disease, unspecified; K21.9 Gastro-esophageal reflux disease without esophagitis; M15.9 Polyosteoarthritis, unspecified; M85.80 Other specified disorders of bone density and structure, unspecified site; Z79.899 Other long term (current) drug therapy; Z85.841 Personal history of malignant neoplasm of brain; R91.8 Other nonspecific abnormal finding of lung field
CPT/HCPCS: 31624; 31628; 36415; 71010; 71250; 80048; 80053; 80202; 81003; 82550; 82553; 82607; 82728; 82747; 83540; 83550; 83605; 84484; 85025; 85045; 85610; 85730; 86850; 86900; 86901; 86920; 87040; 87070; 87086; 87102; 87116; 87205; 87206; 87252; 87299; 87496; 87498; 87502; 87529; 87541; 87798; 88108; 88305; 94640; 96361; 96365; 96366; 99285

== ENCOUNTER → 2016-08-24 | Outpatient (CLI) | payer MEDICARE ==
--- NOTE | 2016-08-24 14:34 | MR ---
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 FINDINGS: Diffusion weighted images demonstrate focal areas of restricted diffusion in the right temp oral lobe, left frontal lobe, and towards the convexity in the right frontal lobe, corresponding abno rmal enhancement following contrast administration. Findings compatible with vasogenic edema on inver elodia recovery and T2-weighted sequences. That are new as compared to previous exam, there is associat ed abnormal signal on diffusion-weighted images, T2-weighted sequences. There are approximately 11 ne w lesions with peripheral enhancement. The area of abnormal signal in the left temporal lobe again show s peripheral enhancement and measures overall approximately 7.6 x 3.7 by 5.3cm on postcontrast images which is increased in size. Scattered hyperintensities are present within the deep white matter on i nversion recovery and T2-weighted sequences. There is no hydrocephalus or hemorrhage evident. Inflamm atory change present in the mastoid air cells bilaterally. There is persistent mass effect IMPRESSION: Findings compatible with progression, metastatic disease.
== END | disposition home or self-care (01) ==
LOC: RADMRIMAIN 10:07
PROVIDERS: ATTEND Radiology Radiation Oncology
DX: C71.2 Malignant neoplasm of temporal lobe (principal)
CPT/HCPCS: 70553; A9577

== ENCOUNTER → 2016-09-30 | Outpatient (CLI) | payer MEDICARE | LOC: LABWHC1 14:52 | PROVIDERS: ATTEND Radiology Radiation Oncology | DX: C71.2 Malignant neoplasm of temporal lobe (principal) | CPT/HCPCS: 36415; 82565 ==

== ENCOUNTER → 2016-10-01 | Outpatient (CLI) | payer MEDICARE ==
--- NOTE | 2016-10-01 23:33 | MR ---
EXAMINATION TYPE: MR brain wo/w con DATE OF EXAM: 10/01/2016 COMPARISON: 08/24/2016 HISTORY: Temporal Lobe Tumor Memory Loss TECHNIQUE: Multiplanar, multisequence images of the brain and brainstem is performed without and with IV contras t, utilizing 13 mL intravenous MultiHance . FINDINGS: There is a 7 x 3.5 cm area of abnormal increased signal on the T2 images involving the left temporal lobe. There is irregular ring enhancement. There is a 11 mm ring-enhancing focus left posterior front al lobe. There are 2 5 mm ring-enhancing foci in the right posterior frontal lobe. There is a 3 mm ro unded area of enhancement in the right posterior lateral frontal lobe. There is a 5 mm ring enhanceme nt in the anterior right temporal lobe. There is irregular 10 x 5 mm area of enhancement in the left posterior parietal lobe convexity. There is a 1 cm area of enhancement in the medial left temporal lo be left parasellar region. The brainstem is intact. Cerebellum is intact. There is no hydrocephalus. There is left temporal cran iotomy noted. There is multiple variable sized foci of white matter edema in both cerebral hemisphere s and the largest is left temporal lobe. The largest measures up to 2 cm.. IMPRESSION: Numerous enhancing foci in the brain consistent with metastatic disease. These ring-enhan cing lesions appear slightly smaller than the old MR scan of 08/24/2016. Most of these are 50% smaller in diameter. The left large temporal lobe lesion is not significantly different. There is multiple foci of white matter edema in the cerebral hemispheres that appear significantly im proved compared to the last MR scan of 08/24/2016 and suggests a favorable treatment response. There i s a new 1 cm area of enhancement in the medial left temporal lobe adjacent to the sella that could be a new focus of tumor.
== END | disposition home or self-care (01) ==
LOC: RADMRIMAIN 17:08
PROVIDERS: ATTEND Radiology Radiation Oncology
DX: G93.89 Other specified disorders of brain (principal); G93.6 Cerebral edema; R93.0 Abnormal findings on diagnostic imaging of skull and head, not elsewhere classified; C71.2 Malignant neoplasm of temporal lobe
CPT/HCPCS: 70553; A9577

== ENCOUNTER → 2016-10-28 | Outpatient (CLI) | payer MEDICARE ==
--- NOTE | 2016-10-28 10:28 | MR ---
"EXAMINATION TYPE: MR brain wo/w con DATE OF EXAM: 10/28/2016 COMPARISON: 10/01/2016 HISTORY: glioblastoma TECHNIQUE: Multiplanar, multisequence images of the brain and brainstem is performed without and with IV contras t, utilizing 7 mL intravenous Gadavist . FINDINGS: There is a 7 x 3.5 cm area of abnormal increased signal on the T2 images involving the left temporal lobe. There is irregular ring enhancement. There is a 11 mm ring-enhancing focus left poste rior frontal lobe which now measures 7 mm. There persists extensive vasogenic edema with uncal hernia tion which is stable results in mild mass effect and compression of the left cerebral peduncle\\midbra in. There are two 5 mm ring- enhancing foci in the right posterior frontal lobe on the previous that now measure approximately 2 mm. There is a 3 mm rounded area of enhancement in the right posterior lateral frontal lobe on the previo us exam now measures 2 mm. There is a 5 mm ring enhancement in the anterior right temporal lobe on the previous exam now measure s 3 mm. There is irregular 10 x 5 mm area of enhancement in the left posterior parietal lobe on the previous exam convexity. There is a 1 cm area of enhancement in the medial left temporal lobe left parasellar region on the pr evious now measures 5 mm. There remains a mild left right midline shift which appears stable. There also appears to be edema an d mass effect along the left anterior cerebral peduncle of the midbrain which is stable. Diffuse confluent and focal areas of abnormal signal the white matter are compatible with remote micr ovascular ischemia. Changes of chronic mastoiditis and sinusitis noted. Small venous angioma right frontal lobe incidenta lly noted. Area of high signal on diffusion within the left frontal lobe is stable from the previous exam. Small focal area of enhancement which appears to be compatible with an area of neoplasm. Report called to the physician's office. IMPRESSION: 1. Large left temporal lesion with ring enhancement appear stable with vasogenic edema and mass effec t upon the left cerebral peduncle and stable midline shift from [id number]. Dilation of the contra lateral temporal horn with compression of the left temporal horn noted. Findings are compatible with brainstem compression and uncal herniation which is stable. 2. Remaining lesions demonstrate interval reduction in size as measured above. 3. Small focal area of high signal within the left frontal lobe is also noted on the previous exam an d appears to correspond to a intracranial area of neoplasm. A Red message has been communicated to Leonardo Early MD via the [employer] | Critical Result s [email or web address] on 10/28/2016 10:17 AM, Message ID [id number]."
== END | disposition home or self-care (01) ==
LOC: RADMRIMAIN 09:15
PROVIDERS: ATTEND Internal Medicine Hematology & Oncology
DX: G93.6 Cerebral edema (principal); G93.5 Compression of brain; C71.9 Malignant neoplasm of brain, unspecified
CPT/HCPCS: 70553; A9581

== ENCOUNTER 2016-11-05 17:04 | Observation (INO) | payer OTHER, MEDICARE ==
[2016-11-05] MEDS: SODIUM CHLORIDE 0.9% 500 ML IV SCH ×2 (18:08→20:05)
[2016-11-05 18:24] LABS: Anisocytosis Slight; CH 32.5; CHCM 33.8; HCT 34.6 % (39.0-53.0); HDW 2.72; HGB 11.9 gm/dL (13.0-17.5); Immature Gran Flag Marked; MCHC 34.3 g/dL (31.0-37.0); MCV 96.3 fL (80.0-100.0); Macrocytosis Slight; Mean Platelet Volume 8.4; RDW 18.9 % (11.5-15.5); WBC 17.3 k/uL (3.8-10.6)
--- NOTE | 2016-11-05 18:33 | ED ---
General Adult HPI - General Chief complaint: Recheck/Abnormal Lab/Rx Stated complaint: sent per Dr Mccall Time Seen by Provider: 11/05/16 17:15 Source: patient Mode of arrival: wheelchair Limitations: no limitations - History of Present Illness Initial comments: Patient is a 71-year-old male with a history of glioblastoma multiformity who presents to the emergency department with his significant other and the patient has refused to go to his oncology appointments or take any medications at home. Laureen at bedside was told that if they came to the emergency department the hospital would be able to assist them in obtaining home health care, palliative care. In addition significant other at bedside states that the patient has been coughing more than usual and she is concerned he may have recurrent pneumonia as he has had pneumonia multiple times in the past. Patient is very hard of hearing but is able to participate in history. He is clearly agitated that he was brought to the hospital. He states that he feels fine. He understands that he is here to obtain home health care. Patient is aware that he has a terminal diagnosis and states that he wants things set up for "when it happens." - Related Data Home Medications Medication Instructions Recorded Confirmed Lisinopril [Prinivil] 10 mg PO DAILY 05/16/15 11/05/16 HYDROcodone/APAP 5-325MG [[place] 1 tab PO Q3H PRN 07/09/16 11/05/16 5-325] Temozolomide [Temodar] 40 mg PO DIRECTED 07/09/16 11/05/16 Temozolomide [Temodar] 300 mg PO DIRECTED 07/09/16 11/05/16 Dexamethasone 4 mg PO TID 11/05/16 11/05/16 Previous Rx's Medication Instructions Recorded Ipratropium-Albuterol Nebulize 3 ml INHALATION RT-QID #120 neb 07/16/16 [Duoneb 0.5 mg-3 mg/3 ml Soln] Allergies Allergy/AdvReac Type Severity Reaction Status Date / Time No Known Allergies Allergy Verified 11/05/16 19:09 Review of Systems ROS Statement: Those systems with pertinent positive or pertinent negative responses have been documented in the HPI. ROS Other: All systems not noted in ROS Statement are negative. Constitutional: Denies: fever Respiratory: Reports: cough. Denies: hemoptysis Cardiovascular: Denies: chest pain, palpitations Endocrine: Reports: fatigue Gastrointestinal: Denies: abdominal pain, nausea, vomiting Genitourinary: Denies: dysuria Musculoskeletal: Denies: back pain Skin: Denies: rash, lesions Neurological: Reports: confusion Past Medical History Past Medical History: Cancer, GI Bleed, Hypertension, Osteoarthritis (OA), Vascular Disorder Additional Past Medical History / Comment(s): Being tx for pneumonia, past collapsed lung d/t broken ribs had a chest tube, diverticulosis, benign polys removed during colonoscopy, artherosclerosis peripheral vascualr disease, beginnings of cataracts, lower GI bleed with acute blood loss anemia r/t polypectomy, DJD, malignant brain tumor removed 05/01/16 with current radiation tx /chemo by pill. glioblastoma History of Any Multi-Drug Resistant Organisms: None Reported Past Surgical History: Orthopedic Surgery Additional Past Surgical History / Comment(s): 05/01/16 brain tumor excised, colonscopy with polypectomy and clipping, vasectomy, rt ankle orif-plate and screws, chest tube d/t collapsed lung, brain surgery Past Anesthesia/Blood Transfusion Reactions: No Reported Reaction Past Psychological History: Anxiety, Depression Smoking Status: Current every day smoker Past Alcohol Use History: Occasional Past Drug Use History: Marijuana - Past Family History Mother Family Medical History: Dementia, Diabetes Mellitus, Osteoarthritis (OA) Additional Family Medical History / Comment(s): Mother at the age of 88yrs. Father Family Medical History: Syncope Additional Family Medical History / Comment(s): etoh. Father in his early 60's. General Exam Limitations: no limitations General appearance: alert, in no apparent distress, other (chronically ill appearing) Head exam: Present: atraumatic, normocephalic Eye exam: Present: normal appearance, PERRL ENT exam: Present: mucous membranes moist Neck exam: Present: full ROM Respiratory exam: Present: decreased breath sounds. Absent: respiratory distress Cardiovascular Exam: Present: tachycardia GI/Abdominal exam: Present: soft. Absent: distended Rectal exam: Present: deferred Extremities exam: Present: other (diffuse atrophy) Back exam: Present: normal inspection Neurological exam: Present: alert Psychiatric exam: Present: flat affect Skin exam: Present: warm, dry Course Vital Signs 11/05/16 11/05/16 11/05/16 17:10 18:54 22:03 Temperature 97.5 F L 97.2 F L Pulse Rate 106 H 80 65 Respiratory 18 17 16 Rate Blood Pressure 115/77 176/68 108/57 O2 Sat by Pulse 99 98 99 Oximetry EKG Findings - EKG Comments: EKG Findings:: EKG time 1742, EKG evaluated 1753 - EKG sinus rhythm, rate is 96 , normal intervals, KS 134, QRS 74, QTC 449. Noted to have a left anterior fascicular block. No acute ST elevations or depressions. No evidence of acute ischemia or infarction. Medical Decision Making - Medical Decision Making Patient was seen and evaluated, vital signs were reviewed History was obtained from the patient's at bedside records A complete sepsis workup was ordered as there is a high suspicion the patient could have pneumonia and the patient is noted to be tachycardic Labs reveal leukocytosis CXR reveals possible pneumonia - will treat for HCAP Patient care discussed with Janeen Chilel NP for [facility] who accepts admission for elderly development located patient with the pneumonia and need for social work consult and placement with palliative care or hospice and home health care. - Lab Data Result diagrams: 11/05/16 18:00 11/05/16 18:00 Lab Results 11/05/16 11/05/16 11/05/16 Range/Units 18:00 18:00 18:00 WBC 17.3 H (3.8-10.6) k/uL RBC 3.60 L (4.30-5.90) m/uL Hgb 11.9 L (13.0-17.5) gm/dL Hct 34.6 L (39.0-53.0) % MCV 96.3 (80.0-100.0) fL MCH 33.0 (25.0-35.0) pg MCHC 34.3 (31.0-37.0) g/dL RDW 18.9 H (11.5-15.5) % Plt Count 126 L (150-450) k/uL Neutrophils % (Manual) 74 % Lymphocytes % (Manual) 21 % Monocytes % (Manual) 5 % Neutrophils # (Manual) 12.80 H (1.3-7.7) k/uL Lymphocytes # (Manual) 3.63 (1.0-4.8) k/uL Monocytes # (Manual) 0.87 (0-1.0) k/uL Nucleated RBCs 0 (0-0) /100 WBC Manual Slide Review Performed Anisocytosis Slight Macrocytosis Slight PT (9.0-12.0) sec INR (<1.2) APTT (22.0-30.0) sec Sodium 136 L (137-145) mmol/L Potassium 4.8 (3.5-5.1) mmol/L Chloride 103 (98-107) mmol/L Carbon Dioxide 25 (22-30) mmol/L Anion Gap 8 mmol/L BUN 26 H (9-20) mg/dL Creatinine 0.82 (0.66-1.25) mg/dL Est GFR (MDRD) Af Amer >60 (>60 ml/min/1.73 sqM) Est GFR (MDRD) Non-Af >60 (>60 ml/min/1.73 sqM) Glucose 101 H (74-99) mg/dL Lactic Ac Sepsis Rflx Plasma Lactic Acid Darrell 2.2 H* (0.7-2.0) mmol/L Calcium 8.8 (8.4-10.2) mg/dL Total Bilirubin 0.4 (0.2-1.3) mg/dL AST 19 (17-59) U/L ALT 48 (21-72) U/L Alkaline Phosphatase 39 (38-126) U/L Total Protein 6.3 (6.3-8.2) g/dL Albumin 3.7 (3.5-5.0) g/dL Urine Color Urine Appearance (Clear) Urine pH (5.0-8.0) Ur Specific [place] (1.001-1.035) Urine Protein (Negative) Urine Glucose (UA) (Negative) Urine Ketones (Negative) Urine Blood (Negative) Urine Nitrite (Negative) Urine Bilirubin (Negative) Urine Urobilinogen (<2.0) mg/dL Ur Leukocyte Esterase (Negative) 11/05/16 11/05/16 11/05/16 Range/Units 18:00 18:42 19:47 WBC (3.8-10.6) k/uL RBC (4.30-5.90) m/uL Hgb (13.0-17.5) gm/dL Hct (39.0-53.0) % MCV (80.0-100.0) fL MCH (25.0-35.0) pg MCHC (31.0-37.0) g/dL RDW (11.5-15.5) % Plt Count (150-450) k/uL Neutrophils % (Manual) % Lymphocytes % (Manual) % Monocytes % (Manual) % Neutrophils # (Manual) (1.3-7.7) k/uL Lymphocytes # (Manual) (1.0-4.8) k/uL Monocytes # (Manual) (0-1.0) k/uL Nucleated RBCs (0-0) /100 WBC Manual Slide Review Anisocytosis Macrocytosis PT 10.0 (9.0-12.0) sec INR 1.0 (<1.2) APTT 21.2 L (22.0-30.0) sec Sodium (137-145) mmol/L Potassium (3.5-5.1) mmol/L Chloride (98-107) mmol/L Carbon Dioxide (22-30) mmol/L Anion Gap mmol/L BUN (9-20) mg/dL Creatinine (0.66-1.25) mg/dL Est GFR (MDRD) Af Amer (>60 ml/min/1.73 sqM) Est GFR (MDRD) Non-Af (>60 ml/min/1.73 sqM) Glucose (74-99) mg/dL Lactic Ac Sepsis Rflx Y Plasma Lactic Acid Darrell (0.7-2.0) mmol/L Calcium (8.4-10.2) mg/dL Total Bilirubin (0.2-1.3) mg/dL AST (17-59) U/L ALT (21-72) U/L Alkaline Phosphatase (38-126) U/L Total Protein (6.3-8.2) g/dL Albumin (3.5-5.0) g/dL Urine Color Yellow Urine Appearance Clear (Clear) Urine pH 7.0 (5.0-8.0) Ur Specific [place] 1.019 (1.001-1.035) Urine Protein Trace H (Negative) Urine Glucose (UA) Negative (Negative) Urine Ketones Negative (Negative) Urine Blood Negative (Negative) Urine Nitrite Negative (Negative) Urine Bilirubin Negative (Negative) Urine Urobilinogen <2.0 (<2.0) mg/dL Ur Leukocyte Esterase Negative (Negative) Disposition Clinical Impression: Pneumonia, End of life care Disposition: ADMITTED IP TO THIS HOSP Condition: Poor Time of Disposition: 21:38
[2016-11-05 18:34] LABS: ALT 48 U/L (21-72); AST 19 U/L (17-59); Alkaline Phosphatase 39 U/L (38-126); Anion Gap 8 mmol/L; Blood Urea Nitrogen 26 mg/dL (9-20); Calcium 8.8 mg/dL (8.4-10.2); Carbon Dioxide 25 mmol/L (22-30); Chloride 103 mmol/L (98-107); Glucose 101 mg/dL (74-99); Non-African American GFR(MDRD) >60 (>60 ml/min/1.73 sqM); Potassium 4.8 mmol/L (3.5-5.1); Sodium 136 mmol/L (137-145); Total Bilirubin 0.4 mg/dL (0.2-1.3); Total Protein 6.3 g/dL (6.3-8.2)
[2016-11-05 18:50] LABS: Partial Thromboplastin Time 21.2 sec (22.0-30.0)
[2016-11-05 19:02] LABS: Add Differential Manual Differential
[2016-11-05 19:04] LABS: Manual Review Performed; Nucleated Red Blood Cells 0 /100 WBC (0-0); Total Cells Counted 100
--- NOTE | 2016-11-05 19:13 | XR ---
EXAMINATION TYPE: XR chest 2V DATE OF EXAM: 11/05/2016 COMPARISON: 07/14/2016 HISTORY: Cough and confusion TECHNIQUE: Frontal and lateral views of the chest are obtained. FINDINGS: There is a focal air space consolidative opacity in the left lower lobe, consistent with a clinical diagnosis of developing left lower lobe bronchopneumonia. Remainder of the lung parenchyma clear and well expanded. Pleural spaces are negative. The cardiomediastinal silhouette and bones and soft tissues are unremarkable. IMPRESSION: SUSPECT DEVELOPING LEFT LOWER LOBE WITH BRONCHOPNEUMONIA; WOULD SUGGEST SIX-WEEK FOLLOW-UP RADIOGRAPH S TO PROVE RESOLUTION.
[2016-11-05] MEDS ORDERED: MORPHINE SULFATE 4 MG/ML SYRINGE IV PRN (19:49)
[2016-11-05] MEDS ORDERED: PIPERACILLIN-TAZOBACTAM 3.375 GM in DEXTROSE/WATER 1 50ML.BAG IVPB STA (19:49)
[2016-11-05] MEDS ORDERED: NALOXONE 0.4 MG/ML 1 ML VIAL IV PRN (19:49)
[2016-11-05] MEDS ORDERED: VANCOMYCIN 1,000 MG in SODIUM CHLORIDE 0.9% 250 ML IVPB STA (19:49)
[2016-11-05 20:26] LABS: Appearance,Urine Clear (Clear); Bilirubin,Urine Negative (Negative); Glucose,Urine (UA) Negative (Negative); Ketones,Urine Negative (Negative); Leukocyte Esterase,Urine Negative (Negative); Nitrite,Urine Negative (Negative); Protein,Urine Trace (Negative); Specific Gravity,Urine 1.019 (1.001-1.035); UA Billing (MACRO vs. MICRO) CHEM; Urobilinogen,Urine <2.0 mg/dL (<2.0)
[2016-11-05] MEDS ORDERED: LORazepam 2 MG/ML SYRINGE IV STA (20:58)
[2016-11-06] MEDS: LORazepam 2 MG/ML SYRINGE IV PRN ×2 (00:10→05:40)
[2016-11-06 14:05] LABS: Hemoglobin A1C 6.3 % (4.2-6.1)
[2016-11-06 14:50] VITALS: BP 96/61; PULSE 75; RESP 16; TEMP 97
[2016-11-06] MEDS ORDERED: PIPERACILLIN-TAZOBACTAM 3.375 GM in DEXTROSE/WATER 1 50ML.BAG IVPB SCH (16:00)
[2016-11-06] MEDS ORDERED: INSULIN LISPRO (humaLOG) 300 UNIT/3 ML VIAL SQ SCH (17:30)
[2016-11-06] MEDS ORDERED: DEXAMETHASONE SOD PHOSPHATE 10 MG/ML 1 ML VIAL IV SCH (18:00)
[2016-11-07] MEDS ORDERED: PANTOPRAZOLE 40 MG/10 ML VIAL IVP SCH (09:00)
--- NOTE | 2016-11-07 10:42 | HP ---
HISTORY AND PHYSICAL COMBINATION HISTORY AND PHYSICAL AND DISCHARGE SUMMARY: DATE OF ADMISSION: 11/05/16 CHIEF COMPLAINTS: Change in mental status. HISTORY OF PRESENT ILLNESS: This 71-year-old gentleman with a past medical history of DJD, history of GI bleed, history of chest tube drainage, also has glioblastoma multiforme. The most recent MRI showed a significant midline shift and possible recurrence of tumor. The family has noted the patient to be confused and not cooperative. Patient taken to [facility] and admitted to the hospital further evaluation and treatment. Left-side pneumonia suspected. Currently the family also exploring the possibility of palliative care or hospice also. Currently patient is stuporous unable to give any coherent history. Most of the history taken from my discussion with staff at the bedside and review of the chart. PAST MEDICAL HISTORY: Glioblastoma multiforme, history of hypertension, history of DJD, history of vascular disorder. MEDICATIONS: Prior to admission include home medications are reviewed and include: 1. Atrovent. 2. DuoNeb q.i.d. and p.r.n. 3. Dexamethasone. 4. Ativan. SOCIAL HISTORY: History of smoking, alcohol per chart. FAMILY HISTORY: History of dementia, diabetes and DJD per chart. REVIEW OF SYMPTOMS: Review of systems could not be taken because the patient is stuporous. PHYSICAL EXAM: The patient is stuporous. Pulse 75, blood pressure 96/61 respirations 16, temperature 97 degrees, pulse ox 99% on room air. HEENT: Conjunctivae normal. Oral mucosa moist. Neck is no jugular venous distention. No carotid bruit. No lymph node enlargement. Cardiovascular is S1, S2. No S3, no S4. Respiratory: Breath sounds diminished at the bases, a few scattered rhonchi and crackles. Expiratory wheezing also present. ABDOMEN: Soft, nontender. No mass palpable. Legs no edema. No swelling. Central nervous system: Higher functions as mentioned earlier. Otherwise the patient unable to complete a full neurologic exam because of stuporous nature. Moves all four limbs involuntarily though. Skin no ulcer, rash or bleeding. Lymphatics: No lymph nodes palpable in the neck, axillae or groin. Joints: No active deforming arthropathy. LAB STUDIES: WBC 7.9, hemoglobin 11.3, plasma lactic acid 2.2 and 1.5. ASSESSMENT: 1. Glioblastoma multiforme with recurrence and cerebral edema. 2. Change in mental status, metabolic toxic encephalopathy. 3. Acute left lower lobe pneumonia possibly gram negative. 4. Increased WBC. 5. Hypertension. 6. History of gastrointestinal bleed. 7. History of degenerative joint disease. 8. Anxiety, depression. 9. NO CODE NO CPR NO VENT. RECOMMENDATION: In this 71-year-old gentleman who presented with multiple complex medical issues, we will monitor the patient closely. We had a detailed discussion with the family at this time. The possibilities of palliative care and hospice is considered. The family would like to take the patient home at this time. Discussed with the disease case manager, social worker palliative care and home palliative care/hospice will be provided and Dr. Drew will follow. DISCHARGE MEDICATIONS: Are as follows: 1. Augmentin 600/42.9, that is 875 mg p.o. b.i.d. for 5 days. 2. Dexamethasone 4 mg p.o. t.i.d. 3. DuoNeb q.i.d. and p.r.n. 4. Ativan 0.5 mg t.i.d. p.r.n. 5. Roxanol 10 mg sublingual p.r.n. Once again, the patient is being discharged in stable condition with guarded prognosis. MMODL / IJN: [id number] /
== END 2016-11-06 19:54 | disposition hospice, home (50) ==
LOC: EC 17:04 → 4MS4W 19:50
PROVIDERS: ADMIT Internal Medicine; ATTEND Internal Medicine
DX: C71.9 Malignant neoplasm of brain, unspecified (principal); G92 Toxic encephalopathy; J18.9 Pneumonia, unspecified organism; Z51.5 Encounter for palliative care; R45.1 Restlessness and agitation; I10 Essential (primary) hypertension; F41.9 Anxiety disorder, unspecified; F32.9 Major depressive disorder, single episode, unspecified; H91.90 Unspecified hearing loss, unspecified ear; M19.90 Unspecified osteoarthritis, unspecified site; Z66 Do not resuscitate; Z79.899 Other long term (current) drug therapy; Z79.52 Long term (current) use of systemic steroids; Z92.3 Personal history of irradiation; Z92.21 Personal history of antineoplastic chemotherapy; F17.200 Nicotine dependence, unspecified, uncomplicated; Z87.01 Personal history of pneumonia (recurrent); R40.1 Stupor
CPT/HCPCS: 96365 ×2; 96366 ×4; 96375 ×4; 99285; 96376; 96367; 36415; 93005; 80053; 83036; 83605; 85025; 85610; 85730; 81003; 87040; 87086; 71020; G0378 ×2; J3370; J2060 ×2; J2270; J1100; J2543 ×2